=== PATIENT | female | born 1985 | race African-American/Black ===

== ENCOUNTER 2023-02-26 02:53 | Inpatient (IN) ==
[2023-02-26] MEDS ORDERED: LACTATED RINGER'S 1,000 ML IV PRN (03:45)
[2023-02-26] MEDS ORDERED: LIDOCAINE 1% LOCAL 20 ML VIAL INFIL PRN (03:45)
[2023-02-26] MEDS ORDERED: OXYTOCIN 30 UNITS/500 ML BAG IV PRN ×2 (03:45→05:16)
[2023-02-26 04:15] LABS: Hematocrit (blood only) 38.1 % (37.0-47.0); Hemoglobin 12.6 g/dl (12.0-16.0); Mean Corpuscular Hemoglobin 28.3 pg (25.0-34.0); Mean Corpuscular Hgb Conc 33.1 g/dL (32.0-36.0); Mean Corpuscular Volume 85.6 fL (80.0-100.0); Mean Platelet Volume 10.1 fL (9.4-12.4); Platelet Count 160 K/uL (130-400); RDW Coefficient of Variation 13.3 % (11.5-14.5); RDW Standard Deviation 42.1 fL (36.4-46.3); Red Blood Count 4.45 M/uL (4.20-5.40); White Blood Count 7.98 K/ul (4.8-10.8)
--- NOTE | 2023-02-26 04:15 | History & Physical Report ---
Date of Service February 26, 2023 Assessment & Plan Admission and Anticipated Discharge Date Admission Date: February 26, 2023 History of Present Illness Chief Complaint: onset of labor Primary Care Provider: NO PCP 37 F P1001 at38.5 weeks admitted in active labor. GBS is negative. Allergies Allergy/AdvReac Type Severity Reaction Status Date / Time No Known Allergies Allergy Unverified 02/26/23 03:11 Home Medications Medication Instructions Recorded Confirmed Type PO DAILY 02/26/23 History iron PO 02/26/23 History Patient History Medical History No known health problems Surgical History No history of previous surgery Family History Other No known health problems Social History Smoking Status: Never smoker Hx Alcohol Use: No Hx Substance Use: No Preferred Language: Estonian Communication Ability: Effective Pre K Lead Teacher Required: No Beliefs That Will Affect Care: None marital status: Current Living Situation: Spouse Current Living Situation Comment: spouse, daughter - 3 yr Other Information That Helps Us Care for You: No Feels Safe at Home: Yes Safety Concerns: Feels Safe At This Time Assistive Devices: None OB History x1 RAILROAD WORKER History neg Review of Systems All systems reviewed & are unremarkable except as noted in HPI & below Physical Exam Constitutional: WD/WN, vitals as above Eyes: PERRL, conjunctivae normal, anicteric sclerae Respiratory: normal respiratory effort, lungs clear to auscultation Cardiovascular: RRR, no murmur, no edema Gastrointestinal (Abdomen): normal bowel sounds, soft, nontender, no hepatosplenomegaly Musculoskeletal: Extremities: extremities normal to inspection Skin: no rashes, warm and dry Neurologic: patellar DTR's 2+ bilat, sensation intact Psychiatric: A+Ox3, euthymic affect Genitourinary: Manual OB Exam: + cervical dilation 8 cm, + cervical effacement 100% and + station -2 OB Exam Monitor Tracing: + external FHT monitor used, + external uterine monitor used, + category I and + normal FHT variability Results & Data Vital Signs (Past 12 Hours) Vital Signs Temp Pulse Resp BP 11/15/23 03:29 88 02/26/23 03:29 120/76 02/26/23 03:16 36.9 C 20 02/26/23 03:02 103 H 135/92 Code Status & VTE Plan VTE Prophylaxis Plan VTE Prophylaxis will be ordered: No Monitoring External Monitor Cat 1
[2023-02-26] MEDS ORDERED: ePHEDrine sulfate 50 MG/ML AMP ONE (04:24)
[2023-02-26] MEDS ORDERED: fentaNYL citrate PF 100 MCG/2 ML VIAL ONE (04:24)
[2023-02-26] MEDS ORDERED: BUPIVACAINE 0.25% PF 30 ML VIAL ONE (04:25)
[2023-02-26] MEDS ORDERED: LIDOCAINE 2%/EPINEPHRINE 1:200,000 20 ML PF ONE (04:25)
[2023-02-26] MEDS ORDERED: SODIUM CHLORIDE 0.9% PF INJ 10 ML VIAL ONE (04:25)
[2023-02-26] MEDS ORDERED: fentANYL 2 MCG/ML BUPIVacaine 0.125%-NSS 100ML BAG ONE (04:25)
--- NOTE | 2023-02-26 05:06 | Delivery Summary ---
Vaginal Delivery Summary Date of Service February 26, 2023 Vaginal Delivery Summary live female BETHANY over intact perineum with delayed cord clamping and Apgars 8/9 weight pending. Cord blood obtained followed by spontaneous delivery of intact placenta. No tears. EBL 100 ml. Final spomge and instrument count are correct. Mom and baby stable.
[2023-02-26] MEDS ORDERED: bisacodyL 10 MG SUPP PR PRN (05:16)
[2023-02-26] MEDS ORDERED: IBUPROFEN 600 MG TAB PO PRN (05:16)
[2023-02-26] MEDS ORDERED: HYDROCORTISONE ACETATE 25 MG SUPP PR PRN (05:16)
[2023-02-26] MEDS ORDERED: BENZOCAINE 20% SPRY 85 APPLN/85 GM CAN EXT PRN (05:16)
[2023-02-26] MEDS ORDERED: DIPHTHERIA/TETANUS/PERTUSSIS Vaccine (Tdap, Age 7+yrs) 0.5mL SYR/VL IM ONE (05:16)
[2023-02-26] MEDS: ACETAMINOPHEN 325 MG TAB PO PRN ×2 (05:41→19:57)
[2023-02-26] MEDS: PRENATAL VITAMIN 1 TAB PO SCH (07:58)
[2023-02-26] MEDS: DOCUSATE SODIUM 100 MG CAP PO SCH ×2 (07:58→19:56)
[2023-02-26] MEDS: FERROUS SULFATE 325 MG TAB PO SCH (07:58)
[2023-02-27 00:47] VITALS: RESP 18
--- NOTE | 2023-02-27 01:49 | Obstetrical Progress Note ---
Date of Service February 27, 2023 Assessment & Plan Admission and Anticipated Discharge Date Admission Date: February 26, 2023 Subjective Patient is seen and examined. She feels well, no complaints. Ambulating without dizziness Voiding without difficulty Tolerating regular diet with out N&V Bleeding is minimal No fever/ chills/ CP/ SOB/ N&V/ Leg pain Breast feeding without problems Vital Signs Temp Pulse Resp BP Pulse Ox O2 Del Method 02/27/23 00:27 36.6 C 86 18 104/65 97 Room Air 02/26/23 19:50 36.9 C 100 H 18 111/70 99 Room Air 02/26/23 16:11 36.7 C 17 113/75 99 Room Air Lab Results 02/26/23 Range/Units 03:55 WBC 7.98 (4.8-10.8) K/ul RBC 4.45 (4.20-5.40) M/uL Hgb 12.6 (12.0-16.0) g/dl Hct 38.1 (37.0-47.0) % MCV 85.6 (80.0-100.0) fL MCH 28.3 (25.0-34.0) pg MCHC 33.1 (32.0-36.0) g/dL RDW Std Deviation 42.1 (36.4-46.3) fL RDW Coeff of Brian 13.3 (11.5-14.5) % Plt Count 160 (130-400) K/uL MPV 10.1 (9.4-12.4) fL PE: General: Alert, orientedx3, NAD Abd: soft, NT, fundus firm, below Umbilicus Perineum intact, Lochia rubra minimal Ext; NT, no edema AP: 37 yo s/p , ppd# 1 VSS Afebrile doing well Continue routine care Desires d/c this morning, after 24 hours Discussed when to call All questions were answered Results & Data Vital Signs (Past 12 Hours) Vital Signs Temp Pulse Resp BP Pulse Ox O2 Del Method 02/27/23 00:27 36.6 C 86 18 104/65 97 Room Air 02/26/23 19:50 36.9 C 100 H 18 111/70 99 Room Air 02/26/23 16:11 36.7 C 17 113/75 99 Room Air
[2023-02-27 06:46] LABS: Hematocrit (blood only) 37.3 % (37.0-47.0); Hemoglobin 12.2 g/dl (12.0-16.0); Mean Corpuscular Hemoglobin 28.2 pg (25.0-34.0); Mean Corpuscular Hgb Conc 32.7 g/dL (32.0-36.0); Mean Corpuscular Volume 86.3 fL (80.0-100.0); Platelet Count 146 K/uL (130-400); RDW Coefficient of Variation 13.5 % (11.5-14.5); RDW Standard Deviation 42.5 fL (36.4-46.3); Red Blood Count 4.32 M/uL (4.20-5.40); White Blood Count 7.87 K/ul (4.8-10.8)
[2023-02-27] MEDS: PRENATAL VITAMIN 1 TAB PO SCH (07:59)
[2023-02-27] MEDS: DOCUSATE SODIUM 100 MG CAP PO SCH (07:59)
[2023-02-27] MEDS: FERROUS SULFATE 325 MG TAB PO SCH (08:00)
[2023-02-27] MEDS: ACETAMINOPHEN 325 MG TAB PO PRN (08:00)
[2023-02-27 09:02] VITALS: BP 119/68; PULSE 91; TEMP 98.8; O2SAT 99
[2023-02-27] MEDS ORDERED: bisacodyL 5 MG TABEC PO SCH (20:00)
--- OUTSIDE RECORDS SUMMARY | 2023-02-28 00:31 | External Medical Summary | Summary of Care ---
Author Name Unknown Organization [facility] Address [address] [facility] [place] [address] Phone [phone] Care Team Providers Care Blow Off Worker Name Role Phone Unavailable Primary Care Provider Unavailabl e Reason for Visit * Reason Comments Return Visit Encounter Details Date Type Department Care Team (Late st Contact Info) Description 02/11/2023 2:30 PM EDT Office Visit Gynecology/Obstetric s [facility] [address] [place] [address] Araceli Arriola CRNP [address] [place] [address] Multigravida of advanced maternal age in third trimester*; Normal in third trimester; Antepartum anemia complicating Allergies No known active allergiesdocumented as of this encounter (statuses as of 02/11/2023) Medications Medication Sig Dispensed Refills Start Date End Date Status Adult Gummy/DHA/FA 0.4-25 MG Oral Tablet Chewable Take by mouth. 0 Active Iron-Vitamin C 65-125 MG Oral Tablet (Vitron C)Indications:Antepart um anemia complicating Take 1 Tablet by mouth daily. 90 Tablet 2 07/31/2022 Active documented as of this encounter (statuses as of 02/11/2023) Active Problems Problem Noted Date Diagnosed Date Cervical high risk human pap illomavirus (HPV) DNA test positive 08/13/2022 Overview: Repeat pap 2023 Antepartum anemia complicating 023 Overview: Hgb 11.7 at NOB; rx Vitron C Normal 07/30/2022 AMA (advanced maternal age) multigravida 35+ Estimated Date of Delivery Comme nts Yes 03/07/2023 Based on last me nstrual period of 05/31/2022 (Exact Date) documented as of this encounter (statuses as of 02/11/2023) Immunizations Name Administration Dates Next Due SEASONAL INFLUENZA, PF, 6 M & Above, IM , (FLULAVAL or FLUZONE) 01/28/2023 TDAP (age 10 and older)(Boostrix) 01/09/2023 documented as of this encounter Social History Tobacco Use Types Packs/Day Years Used Date Smoking Tobacco: Never Smokeless Tobacco: Never Alcohol Use Standard Drinks/Week Comments Not Currently 0 (1 standard drink = 0.6 oz pur e alcohol) PHQ-2 Answer Date Recorded PHQ Adult Total Score 0 01/23/2023 Hunger Vital Sign Answer Date Recorded Within the past 12 months, y ou worried that your food would run out before you got the money to buy more. Never true 07/25/19 23 Within the past 12 months, t he food you bought just didn't last and you didn't have money to get more. Never true 07/24/2022 [place] Depression Scale Answer Date Recorded [place] Depression Scale Total 0 01/28/2023 The thought of harming myself has occurred to me . Never 01/28/2023 Estimated Date of Delivery Comme nts Yes 03/07/2023 Based on last me nstrual period of 05/31/2022 (Exact Date) Sex and Gender Information Value Date Recorded Sex Assigned at Female 07/24/2022 8:29 PM EDT Gender Identity Female 07/24/2022 8:29 PM EDT Sexual Orientation Straight 07/24/2022 8: 29 PM EDT Job Start Date Occupation Industry Not on file Not on file Not on file documented as of this encounter Last Filed Vital Signs Vital Sign Reading Time Taken Comments Blood Pressure 104/60 02/11/2023 1:12 PM EDT Pulse - - Temperature - - Respiratory Rate - - Oxygen Saturation - - Inhaled Oxygen Concentration - - Weight 89.8 kg (198 lb) 02/11/2023 1:12 PM EDT Height 157.5 cm (5' 2") 02/11/2023 1:12 PM EDT Body Mass Index 36.21 02/11/2023 1:12 PM EDT documented in this encounter Progress Notes * Araceli Arriola CRNP - 02/11/2023 1:21 PM EDT 36w4d No concerns. Growth u/s today, formal report pending. +cardiac activity on u/s. Baby is active, no bleeding or LOF. GBS today. Stitcher Set Up Operator Automatic Documentation Provider requested eap consultant. Name of eap consultant: TANESHA Ricks documented in this encounter Nursing Notes * Blanca Vargas LPN - 02/11/2023 12:59 PM EDT 36w4d Pt needs gbs 11.7 david 2791gm 23% HC below 2% the standard mean documented in this encounter Plan of Treatment Upcoming Encounters Date Type Department Care Team (Late st Contact Info) Description 02/20/2023 9:00 AM EST Office Visit Gynecology/Obstetrics [facility] [address] [place] [address] Kayley Bear CRNP [address] [place] [address] 02/27/2023 9:00 AM EST Office Visit Gynecology/Obstetrics [facility] [address] [place] [address] Kayley Bear CRNP [address] [place] [address] 03/04/2023 1:45 PM EST Office Visit Gynecology/Obstetrics [facility] [address] [place] [address] Backer, TANESHA Cha [address] [place] [address] Pending Results Name Type Priority Associated Diagnoses Date /Time GROUP B STREP CULTURE/PCR Lab Routine Multigravida of advanced maternal age in third trimester 02/11/2023 1:39 PM EDT Scheduled Orders Name Type Priority Associated Diagnoses Orde r Schedule GROUP B STREP CULTURE/PCR Lab Routine Multigravida of advanced maternal age in third trimester Expected: 02/11/2023, Expires: 02/12/2024 Health Maintenance Due Date Last Done Comments Diabetes Screening 1985 Hepatitis B (1 of 3 - 3-dose series) 1985 COVID-19 Vaccine (#1) 1985 Depression Screening 01/24/2024 01/23/2023 Pap Smear 07/30/2025 07/30/2022 Cervical Cancer Screening 07/31/2027 HPV/Co-Test 07/31/2027 07/30/2022 DTaP,Tdap,and Td Vaccines (2 - Td or Tdap) 01/09/2033 01/09/2023 Influenza Vaccine (FLU shot) Completed 01/28/2023 GARDASIL-HPV IMMUNIZATION SERIES Aged Out No longer eligible based on patient's age to complete this topic MENINGOCOCCAL (MENACTRA/MENVEO) Aged Out No longer eligible based on patient's age to complete this topic Pneumococcal Vaccine: Pediat rics (0 to 5 Years) and At-Risk Patients (6 to 64 Years) Aged Out No longer eligi ble based on patient's age to complete this topic documented as of this encounter Medical Devices Not on filedocumented as of this encounter Visit Diagnoses Diagnosis Multigravida of advanced maternal age in third trimester- Primary Normal in third trimester Antepartum anemia complicating Anemia, antepartum documented in this encounter
--- OUTSIDE RECORDS SUMMARY | 2023-02-28 00:31 | External Medical Summary | Summary of Care ---
Author Name Unknown Organization [facility] Address [address] [facility] [place] [address] Phone [phone] Care Team Providers Care Correctional Supervising Cook Name Role Phone Unavailable Primary Care Provider Unavailabl e Reason for Visit * Reason Comments Return Visit Encounter Details Date Type Department Care Team (Late st Contact Info) Description 02/20/2023 9:00 AM EST Office Visit Gynecology/Obstetric s [facility] [address] [place] [address] BackKayley cunha CRNP [address] [place] [address] Supervision of high risk in third trimester*; Multigravida of advanced maternal age in third trimester Allergies No known active allergiesdocumented as of this encounter (statuses as of 02/20/2023) Medications Medication Sig Dispensed Refills Start Date End Date Status Adult Gummy/DHA/FA 0.4-25 MG Oral Tablet Chewable Take by mouth. 0 Active Iron-Vitamin C 65-125 MG Oral Tablet (Vitron C)Indications:Antepart um anemia complicating Take 1 Tablet by mouth daily. 90 Tablet 2 07/31/2022 Active documented as of this encounter (statuses as of 02/20/2023) Active Problems Problem Noted Date Diagnosed Date Cervical high risk human pap illomavirus (HPV) DNA test positive 08/13/2022 Overview: Repeat pap 2023 Supervision of high risk in third trim karson 07/30/2022 Last Assessment & Plan: growth and fluid appropriate for gestational age. EFW 3379g (68%ile), FRED 13.8cm. All well visualized anatomy appears normal. No concerns regarding HC. AMA (advanced maternal age) multigravida 35+ Overview: Low FF on NIPT - pt declined redraw Last Assessment & Plan: cffDNA resulted as low FF, declined re-draw Estimated Date of Delivery Comme nts Yes 03/07/2023 Based on last me nstrual period of 05/31/2022 (Exact Date) documented as of this encounter (statuses as of 02/20/2023) Resolved Problems Problem Noted Date Diagnosed Date Resolved Date Abnormal US 02/12/20232022 Overview: HC <1% at 36w5d - MFM referral sent documented as of this encounter (statuses as of 02/20/2023) Immunizations Name Administration Dates Next Due SEASONAL [...] money to get more. Never true 07/24/2022 [place] Depression Scale Answer Date Recorded [place] Depression Scale Total 0 01/28/2023 The thought [...] Sign Reading Time Taken Comments Blood Pressure 100/60 02/20/2023 9:06 AM EST Pulse - - Temperature - - Respiratory Rate - - Oxygen Saturation - - Inhaled Oxygen Concentration - - Weight 89.4 kg (197 lb) 02/20/2023 9:06 AM EST Height - - Body Mass Index 36.03 02/11/2023 1:12 PM EDT documented in this encounter Progress Notes * Kayley Bear CRNP - 02/20/2023 9:07 AM EST 37w6d Saw MFM for suspected low HC - normal on their imaging, appropriate growth. Good movement, no regular ctx/bleeding/leaking. Sharp pain across low mid abdomen, around umbilicus: occurred last night and the night before, lasted 30 mins - 2 hrs. Self resolved, did not tryany comfort measures. No nausea, vomiting, fevers. Normal BMs. Normal abdominal exam - recommend Tylenol, position changes, warm bath. Call office if worsening or accompanied by N/V, fever. Having some irregular ctx, mostly at night. Baby is moving well. No leaking/bleeding. 1 week return TANESHA Ho * Munira Olvera LPN - 02/20/2023 9:06 AM EST 37w6d Denies vaginal bleeding/rom + movement documented in this encounter Plan of Treatment Upcoming Encounters Date Type Department Care Team (Late st Contact Info) Description 02/27/2023 9:00 AM EST Office Visit Gynecology/Obstetrics [facility] [address] [place] [address] Kayley Bear CRNP [address] [place] [address] 03/04/2023 1:45 PM EST Office Visit Gynecology/Obstetrics [facility] [address] [place] [address] Kayley Bear CRNP [address] [place] [address] Health Maintenance Due Date Last Done Comments [...] as of this encounter Visit Diagnoses Diagnosis Supervision of high risk in third trimester- Primary Unspecified high-risk Multigravida of advanced maternal age in third trimester documented in this encounter
--- OUTSIDE RECORDS SUMMARY | 2023-02-28 00:31 | External Medical Summary | Summary of Care ---
Author Name Unknown Organization [facility] Address [address] [place] [address] Phone [phone] Care Team Providers Care Manager Channel Name Role Phone Unavailable Primary Care Provider Unavailabl e Reason for Visit * Evaluate & Treat - Unlimited Visits (Within 3 days (urgent)) - Authorized Specialty Diagnoses / Procedures Referred By Contac t Referred To Contact Obstetrics/Gynecology / Maternal Medicine Diagnoses Abnormal ultrasonic finding on screening of mother Kayley Bear CRNP [address] [place] [address] Referral ID Status Reason Start Date Expiration Date Visits Requested Visits Authorized [id number] Authorized Specialty Services Required 02/12/2023 02/13/2024 [id number] Encounter Details Date Type Department Care Team (Late st Contact Info) Description 02/19/2023 8:30 AM EST Office Visit Corn Grower Obstetrics [facility] [place] [address] [place] [address] Nghia Pearl MD [address] [place] [address] Multigravida of advanced maternal age in third trimester*; Supervision of high risk in third trimester Allergies No known active allergiesdocumented as of this encounter (statuses as of 02/19/2023) Medications Medication Sig Dispensed Refills Start Date End Date Status Adult Gummy/DHA/FA 0.4-25 MG Oral Tablet Chewable Take by mouth. 0 Active Iron-Vitamin C 65-125 MG Oral Tablet (Vitron C)Indications:Antepart um anemia complicating Take 1 Tablet by mouth daily. 90 Tablet 2 07/31/2022 Active documented as of this encounter (statuses as of 02/19/2023) Active Problems Problem Noted Date Diagnosed Date Abnormal US 02/12/2023 Overview: HC <1% at 36w5d - [facility] referral sent Cervical high risk human pap illomavirus (HPV) DNA test positive 08/13/2022 Overview: Repeat pap 2023 Supervision of high risk in third [facility] karson 07/30/2022 Last Assessment & Plan: growth and fluid appropriate for gestational age. EFW 3379g (68%ile), FRED 13.8cm. All well visualized anatomy appears normal. No concerns regarding HC. AMA (advanced maternal age) multigravida 35+ Last Assessment & Plan: cffDNA resulted as low FF, declined re-draw Estimated Date of Delivery Comme nts Yes 03/07/2023 Based on last me nstrual period of 05/31/2022 (Exact Date) documented as of this encounter (statuses as of 02/19/2023) Immunizations Name Administration Dates Next Due SEASONAL [...] money to get more. Never true 07/24/2022 [place] Depression Scale Answer Date Recorded [place] Depression Scale Total 0 01/28/2023 The thought [...] on file documented as of this encounter Progress Notes * Jeane Carrillo, - 02/19/2023 9:12 AM EST MATERNAL MEDICINE VISIT Salma Rankin is at 37w5d who presents to [facility] for an ultrasound and follow-up of her high risk . REVIEW OF SYSTEMS: reports movement: yes PHYSICAL EXAM: Constitutional: pleasant, well-developed, well nourished General: pleasant, alert and oriented Neuro: mood and affect normal, alert and oriented, no acute distress She is being seen today by Maternal- Medicine for the following reasons: Problem List Items Addressed This Visit Other Supervision of high risk in third trimester growth and fluid appropriate for gestational age. EFW 3379g (68%ile), FRED 13.8cm. All well visualized anatomy appears normal. No concerns regarding HC. AMA (advanced maternal age) multigravida 35+ - Primary cffDNA resulted as low FF, declined re-draw We reviewed today's ultrasound findings. (For full report, please refer to ultrasound report provided separately). Ms. Rankin's questions were answered to her satisfaction. RECOMMENDATIONS: No further follow up with [facility] indicated at this time. Thank you for allowing us to participate in the care of this patient. Please call with any questions. Jeane Carrillo DO 02/19/2023 9:12 AM I have discussed the patient's management with the medical trainee and agree with the note. Please refer to the documented findings and plan of care. This patient's visit today consisted of an evaluation and a diagnostic. I was present and confirmed the findings of the history and exam. I have reviewed the interpretation of the diagnostic study. I reviewed the ultrasound with the patient. The anatomy that was visualized appears unremarkable and the head circumference is consistent with the 7th percentile for the gestational age. At this point, there is no clinical indication for return. Nghia Pearl MD 02/19/2023 9:41 AM Nghia Pearl MD documented in this encounter Miscellaneous Notes * Assessment & Plan Note - Jeane Carrillo DO - 02/19/2023 9:39 AM ESTAssociated Problem(s): Supervision of high risk in third trimester growth and fluid appropriate for gestational age. EFW 3379g (68%ile), FRED 13.8cm. All well visualized anatomy appears normal. No concerns regarding HC. * Assessment & Plan Note - Jeane Carrillo DO - 02/19/2023 9:11 AM ESTAssociated Problem(s): AMA (advanced maternal age) multigravida 35+ cffDNA resulted as low FF, declined re-draw documented in this encounter Plan of Treatment Upcoming Encounters Date Type Department Care Team (Late st Contact Info) Description 02/20/2023 9:00 AM EST Office Visit Gynecology/Obstetrics [facility] [address] [place] [address] Kayley Bear CRNP [address] [place] [address] 02/27/2023 9:00 AM EST Office Visit Gynecology/Obstetrics [facility] [address] [place] [address] Kayley Bear CRNP [address] [place] [address] 03/04/2023 1:45 PM EST Office Visit Gynecology/Obstetrics [facility]ocesar [facility] [address] [place] [address] Kayley Bear CRNP [address] [place] [address] Scheduled Referrals Name Type Priority Associated Diagnoses Orde r Schedule MATERNAL MEDICINE REFERRAL OP Referral Within 3 days (urgent) Abnormal ultrasonic finding on screening of mother Ordered: 02/12/2023 Health Maintenance Due Date Last Done Comments [...] advanced maternal age in third trimester- Primary Supervision of high risk in third trimester Unspecified high-risk documented in this encounter
--- OUTSIDE RECORDS SUMMARY | 2023-02-28 00:31 | External Medical Summary | Summary of Care ---
Author Name Unknown Organization [facility] Address [address] [facility] [place] [address] Phone [phone] Care Team Providers Care Chief Relay Tester Name Role Phone Unavailable Primary Care Provider Unavailabl e Reason for Visit * Reason Comments Return Visit Encounter Details Date Type Department Care Team (Late st Contact Info) Description 02/11/2023 2:30 PM EDT Office Visit Gynecology/Obstetric s [facility] [address] [place] [address] Araceli Arriola CRNP [address] [place] [address] Multigravida of advanced maternal age in third [...] money to get more. Never true 07/24/2022 [place] Depression Scale Answer Date Recorded [place] Depression Scale Total 0 01/28/2023 The thought [...] active, no bleeding or LOF. GBS today. Field Care Coordinator Documentation Provider requested sales and marketing manager. Name of sales and marketing manager: TANESHA Ricks documented in this encounter Nursing Notes * Blanca Vargas LPN - 02/11/2023 12:59 PM EDT 36w4d Pt needs gbs 11.7 david 2791gm 23% HC below 2% the standard mean documented in this encounter Plan of Treatment Upcoming Encounters Date Type Department Care Team (Late st Contact Info) Description 02/20/2023 9:00 AM EST Office Visit Gynecology/Obstetrics [facility] [address] [place] [address] Kayley Bear CRNP [address] [place] [address] 02/27/2023 9:00 AM EST Office Visit Gynecology/Obstetrics [facility]oc[facility] [address] [place] [address] Kayley Bear CRNP [address] [place] [address] 03/04/2023 1:45 PM EST Office Visit Gynecology/Obstetrics [facility] [address] [place] [address] Backer, TANESHA Cha [address] [place] [address] Pending Results Name Type Priority Associated Diagnoses [...]
--- OUTSIDE RECORDS SUMMARY | 2023-02-28 00:31 | External Medical Summary | Summary of Care ---
Author Name Unknown Organization [facility] Address [address] [facility] [address] Phone [phone] Care Team Providers Care Network Systems Operator Name Role Phone Unavailable Primary Care Provider Unavailabl e Reason for Referral * Evaluate & Treat - Unlimited Visits (Within 3 days (urgent)) - Pending Review Specialty Diagnoses / Procedures Referred By Caryn t Referred To Contact Obstetrics/Gynecology / Maternal Medicine Diagnoses Abnormal ultrasonic finding on screening of mother Kayley Bear CRNP [address] [place] [address] Referral ID Status Reason Start Date Expiration Date Visits Requested Visits Authorized [id number] Pending Review Specialty Services Required 02/12/[phone] Question Answer Referral Priority Within 3 days (urgent) Has the patient had a viability scan? Yes Date performed 07/30/2022 Location performed Radiology Reason for referral Abnormal ultrasound findings Please provide additional details HC <1 % Where should this appointment be scheduled? Ruby Comments /Para: LMP: Patient's last menstrual period was 05/31/2022 (exact date). Patient is . CHELSY: 03/07/2023, by Last Menstrual Period Pre-Gravid BMI: 25.78 Reason for Visit * Reason Onset Date Comments Test Results 02/12/2023 Encounter Details Date Type Department Care Team ([facility] Contact Info) Description 02/12/2023 Telephone Gynecology/Obstetrics [facility] [address] [place] [address] Backer, TANESHA Cha [address] [place] [address] Test Results Allergies No known active allergiesdocumented as of this encounter (statuses as of 02/13/2023) Medications Medication Sig Dispensed Refills Start Date End Date Status Adult Gummy/DHA/FA 0.4-25 MG Oral Tablet Chewable Take by mouth. 0 Active Iron-Vitamin C 65-125 MG Oral Tablet (Vitron C)Indications:Antepart um anemia complicating Take 1 Tablet by mouth daily. 90 Tablet 2 07/31/2022 Active documented as of this encounter (statuses as of 02/13/2023) Active Problems Problem Noted Date Diagnosed Date Abnormal US 02/12/2023 Overview: HC <1% at 36w5d - [facility] referral sent Cervical high risk human [...] as of this encounter (statuses as of 02/13/2023) Immunizations Name Administration Dates Next Due SEASONAL [...] money to get more. Never true 07/24/2022 Hollis Depression Scale Answer Date Recorded Hollis Depression Scale Total 0 01/28/2023 The thought [...] on file documented as of this encounter Miscellaneous Notes * Telephone Encounter - Vanessa Ly LPN - 02/13/2023 9:07 AM EDT Patient advised of message and agreeable to MFM referral. Pt aware they will be contacting her to schedule. * Telephone Encounter - Kayley Bear CRNP - 02/13/2023 8:31 AM EDT MyG message sent to pt requesting that she call nurse triage line. TANESHA Ho * Telephone Encounter - Kayley Bear CRNP - 02/12/2023 10:17 AM EDT Attempted to call pt but no one available. Can you please re attempt? Recent growth scan shows head circumference <1 % - may be because baby's head is low in the pelvis, so it is hard to get accurate measurements, but recommend u/s with MFM for more detailed scan torule out other concerns. I am placing a referral to them. TANESHA Ho documented in this encounter Plan of Treatment Upcoming Encounters Date Type Department Care Team (Late st Contact Info) Description 02/20/2023 9:00 AM EST Office Visit Gynecology/Obstetrics Bautista'christine Jacksons [address] [place] [address] Kayley Bear CRNP [address] [place] [address] 02/27/2023 9:00 AM EST Office Visit Gynecology/Obstetrics Juliocesar Jacksons [address] [place] [address] Kayley Bear CRNP [address] [place] [address] 03/04/2023 1:45 PM EST Office Visit Gynecology/Obstetrics Juliocesar Bahena [address] [place] [address] Kayley Bear CRNP [address] [place] [address] Scheduled Orders Name Type Priority Associated Diagnoses Orde r Schedule MFM US MATERNAL 1ST FETUS Medical Imaging Routine Abnormal ultrasonic finding on screening of mother Expected: 02/12/2023, Expires: 03/14/2024 Scheduled Referrals Name Type Priority Associated Diagnoses [...] as of this encounter Visit Diagnoses Diagnosis Abnormal ultrasonic finding on screening of mother- Primary Abnormal findings on screening documented in this encounter
--- OUTSIDE RECORDS SUMMARY | 2023-02-28 00:32 | External Medical Summary | Summary of Care ---
Author Name Unknown Organization [facility] Address [address] [place] [address] Phone [phone] Care Team Providers Care Metrology Manager Name Role Phone Unavailable Primary Care Provider Unavailabl e Reason for Visit * Reason Comments Return Visit Encounter Details Date Type Department Care Team Description 01/09/2023 Office Visit Gynecology/Obstetric [facility] [address] [facility] [place] [address] Sheila Genao MD [address] [facility] [place], [place] [id number] 31 weeks gestation of *; Multigravida of advanced maternal age in first trimester; Antepartum anemia complicating ; Cervical high risk human papillomavirus (HPV) DNA test positive; Normal in third trimester Allergies No known active allergiesdocumented as of this encounter (statuses as of 01/10/2023) Medications Medication Sig Dispensed Refills Start Date End Date Status Adult Gummy/DHA/FA 0.4-25 MG Oral Tablet Chewable Take by mouth. 0 Active Promethazine HCl 25 MG Rectal Suppository (Phenergan)Indicatio ns:Nausea and vomiting during Administer 1 Suppository into the rectum every 6 hours as needed for Nausea. 30 Each 1 07/30/2022 Active Additional Information Patient not taking.Reported on 08/30/2022 Iron-Vitamin C 65-125 MG Oral Tablet (Vitron C)Indications:Antepa rtum anemia complicating Take 1 Tablet by mouth daily. 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 papillomavirus (HPV) DNA test positive 08/13/2022 Overview: Repeat pap 2023 Antepartum anemia complicating 07/31/2022 Overview: Hgb 11.7 at NOB; rx Vitron C Normal 07/30/2022 AMA (advanced maternal age) multigravida 35+ 07/30/2022 Estimated Date of Delivery Comme nts Yes 03/07/2023 Based on last me nstrual period of 05/31/2022 (Exact Date) documented as of this encounter (statuses as of 01/10/2023) Immunizations Name Administration Dates Next Due TDAP (age 10 and older)(Boostrix) 01/09/2023 documented as of this encounter Social History Tobacco Use Types Packs/Day Years Used Date Smoking Tobacco: Never Smokeless Tobacco: Never Alcohol Use Standard Drinks/Week Comments Not Currently 0 (1 standard drink = 0.6 oz pur e alcohol) Food Insecurity Answer Date Recorded Within the past 12 months, y ou worried that your food would run out before you got money to buy more. Never true 07/25/2022 Within the past 12 months, t he food you bought just didn't last and you didn't have money to get more. Never true 07/25/2022 Estimated Date of Delivery Comme nts Yes 03/07/2023 Based on last me nstrual period of 05/31/2022 (Exact Date) Sex Assigned at Date Recorded Female 07/24/2022 8:29 PM E DT Job Start Date Occupation Industry Not on file Not on file Not on file documented as of this encounter Last Filed Vital Signs Vital Sign Reading Time Taken Comments Blood Pressure 102/70 01/09/2023 4:17 PM EDT Pulse - - Temperature - - Respiratory Rate - - Oxygen Saturation - - Inhaled Oxygen Concentration - - Weight 85.7 kg (189 lb) 01/09/2023 4:17 PM EDT Height 157.5 cm (5' 2") 01/09/2023 4:17 PM EDT Body Mass Index 34.57 01/09/2023 4:17 PM EDT documented in this encounter Progress Notes * Vanessa Gross LPN - 01/09/2023 4:17 PM EDT 31w6d Would like tdap, unsure about flu. Asking for recommendations on cold medicines- advised plain sudafed or mucinex, no combinations. * Sheila Genao MD - 01/09/2023 4:15 PM EDT Patient is 37 year old at 31 6/7 weeks who presents for HARVINDER visit Denies contractions, leaking of fluid, or vaginal bleeding. Noted good movement Denies headache, blurry vision, RUQ or epigastric pain. Problem list reviewed LMP 05/31/2022 (Exact Date) FH: 32 FHT: 155 Latest Reference Range & Units 12/19/22 12:27 12/23/22 08:36 12/23/22 09:39 12/23/22 10:40 12/23/22 11:41 100-g Gestational Glucose, 1 Hour 70 - 179 mg/dL 181 (H) 100-g Gestational Glucose, 2 Hour 70 - 154 mg/dL 135 100-g Gestational Glucose, 3 Hour 70 - 139 mg/dL 75 100-g Gestational Glucose, Fasting 70 - 94 mg/dL 81 50-g Gestational Glucose, 1 Hour 70 - 129 mg/dL 132 (H) (H): Data is abnormally high Plan: Labor and preeclampsia warnings reviewed TDAP today RTC 2 weeks V Chadwick LARES PhD documented in this encounter Nursing Notes * Vanessa Gross LPN - 01/09/2023 4:30 PM EDT Patient here for tdap injection. Patient doing well no complaints. Injection given IM as ordered. Patient tolerated well. Patient to follow up as directed. Patient instructed to call if any complications. Patient verbalized understanding of instructions given and her follow up appt for HARVINDER. Injection site: Left Deltoid Medication Source: Dispensed stock medication documented in this encounter Plan of Treatment Upcoming Encounters Date Type Specialty Care Team Description 01/23/2023 Office Visit Family Medicine Moe Lopez DO [address] [place] [address] Health Maintenance Due Date Last Done Comments Diabetes Screening 1985 Hepatitis B (1 of 3 - 3-dose series) 1985 COVID-19 Vaccine (#1) 1985 Depression Screening 1997 Influenza Vaccine (FLU shot) (#1) 2022 Pap Smear 07/30/2025 07/30/2022 Cervical Cancer Screening 07/31/2027 HPV/Co-Test 07/31/2027 07/30/2022 DTaP,Tdap,and Td Vaccines (2 - Td or Tdap) 01/09/2033 01/09/2023 GARDASIL-HPV IMMUNIZATION SERIES Aged Out No longer [...] as of this encounter Visit Diagnoses Diagnosis 31 weeks gestation of - Primary state, incidental Multigravida of advanced maternal age in first trimester Antepartum anemia complicating Anemia, antepartum Cervical high risk human papillomavirus (HPV) DNA test positive Normal in third trimester documented in this encounter
--- OUTSIDE RECORDS SUMMARY | 2023-02-28 00:32 | External Medical Summary ---
Author Name Unknown Address Unknown Organization [id number]:[facility] [place] [address] Laboratory Report Ordering Provider Test Date Status ALDO EDGAR 12/23/2022 10:40:20 Final Observation Date Value Abnormality Reference (Units ) Status Glucose, 2-hr post glucose challenge 12/23/2022 10:40:20 135 70-154 (mg/dL) Final Performing Location [facility] - [address] [place] [address]
--- OUTSIDE RECORDS SUMMARY | 2023-02-28 00:32 | External Medical Summary | Summary of Care ---
Author Name Unknown Organization [facility] Address [address] [facility] [address] Phone [phone] Care Team Providers Care State Director Name Role Phone Unavailable Primary Care Provider Unavailabl e Reason for Visit * Reason Comments Outpatient Testing Encounter Details Date Type Department Care Team Description 12/23/2022 Laboratory Laboratory, [facility] [address] [facility] [place] [phone] [facility] [address] [facility] [place] [address] Abnormal glucose tolerance in mother complicating Allergies No known active allergiesdocumented as of this encounter (statuses as of 12/23/2022) Medications Medication Sig Dispensed Refills Start Date [...] as of this encounter (statuses as of 12/23/2022) Active Problems Problem Noted Date Cervical high [...] as of this encounter (statuses as of 12/23/2022) Social History Tobacco Use Types Packs/Day Years [...] file Not on file Not on file Travel History Travel Start Travel End [place] 11/21/2022 11/30/2022 documented as of this encounter Plan of Treatment Upcoming Encounters Date Type Specialty Care Team Description 01/23/2023 Office Visit Family Medicine Moe Lopez DO [address] [place] [address] Pending Results Name Type Priority Associated Diagnoses Date /Time GESTATIONAL GLUCOSE TOLERANCE, 3 HOUR Lab Routine Abnormal glucose tolerance in mother complicating 12/23/2022 8:36 AM EDT 100-G GESTATIONAL GLUCOSE, 2 HOUR Lab Routine Abnormal glucose tolerance in mother complicating 12/23/2022 10:40 AM EDT 100-G GESTATIONAL GLUCOSE, 3 HOUR Lab Routine Abnormal glucose tolerance in mother complicating 12/23/2022 11:41 AM EDT Health Maintenance Due Date Last Done Comments Diabetes Screening 1985 Hepatitis B (1 of 3 - 3-dose series) 1985 COVID-19 Vaccine (#1) 1985 Depression Screening 1997 DTaP,Tdap,and Td Vaccines (1 - Tdap) 2004 Influenza Vaccine (FLU shot) (#1) 2022 Pap Smear 07/30/2025 07/30/2022 Cervical Cancer Screening 07/31/2027 HPV/Co-Test 07/31/2027 07/30/2022 Hepatitis C Screening Discontinued 07/30/2022 , 07/30/2022, 07/30/2022 GARDASIL-HPV IMMUNIZATION SERIES Aged Out No longer eligible based on patient's age to complete this topic MENINGOCOCCAL (MENACTRA/MENVEO) Aged Out No longer eligible based on patient's age to complete this topic Pneumococcal Vaccine: Pediatrics (0 to 5 Years) and At-Risk Patients (6 to 64 Years) Aged Out No longer eligible based on patient's age to complete this topic documented as of this encounter Medical Devices Not on filedocumented as of this encounter Procedures Procedure Name Priority Date/Time Associated Diagnosis Comments 100-G GESTATIONAL GLUCOSE, 1 HOUR Routine 12/23/2022 9:39 AM EDT Abnormal glucose tolerance in mother complicating 100-G GESTATIONAL GLUCOSE, FASTING Routine 12/23/2022 8:36 AM EDT Abnormal glucose tolerance in mother complicating documented in this encounter Results * (ABNORMAL) 100-G GESTATIONAL GLUCOSE, 1 HOUR (12/23/2022 9:39 AM EDT) 100-g Gestational Glucose, 1 Hour 181(H) 70 - 179 mg/dL 12/23/2022 10:27 AM EDT [facility] [place] [facility] Blood Venous blood specimen / Unknown Venipuncture / Unknown 12/23/2022 9:39 AM EDT 12/23/2022 9:39 AM EDT Latanya Jolly PA-C LAB BLOOD ORDERABLES [facility] [place] [address] * 100-G GESTATIONAL GLUCOSE, FASTING (12/23/2022 8:36 AM EDT) 100-g Gestational Glucose, Fasting 81 70 - 94 mg/dL 12/23/2022 9:45 AM EDT [facility] Blood Venous blood specimen / Unknown Venipuncture / Unknown 12/23/2022 8:36 AM EDT 12/23/2022 8:36 AM EDT Narrative [facility] - 12/23/2022 9:45 AM EDT Based on ACOG guideline, gestational diabetes mellitus is diagnosed when any of the following is met: Fasting is greater than or equal to 95 mg/dL 1 hour is greater than or equal to 180 mg/dL 2 hour is greater than or equal to 155 mg/dL 3 hour is greater than or equal to 140 mg/dL Latanya Jolly PA-C LAB BLOOD ORDERABLES [facility] [place] [address] documented in this encounter Visit Diagnoses Diagnosis Abnormal glucose tolerance in mother complicating Abnormal maternal glucose tolerance, complicating , childbirth, or the puerperium, unspecified as to episode of care documented in this encounter
--- OUTSIDE RECORDS SUMMARY | 2023-02-28 00:32 | External Medical Summary ---
Author Name Unknown Address Unknown Organization [id number]:[facility] [place] [facility] [address] [facility] [address] Laboratory Report Ordering Provider Test Date Status GEORGE CASTAÑEDA 02/11/2023 13:39:07 Final Observation Date Value Abnormality Reference (Units ) Status Streptococcus agalactiae DNA [Presence] in Specimen by PEREZ with probe detection 02/11/2023 13:39:07 Negative Negative Final No Group B Streptococcus det ected by culture-enhanced PCR (amplified probe).
The collection of vaginal/rectal swab specimen combinations (FDA approved specimen type) is optimal for the detection of Group B Streptococcus. Single source collection (vaginal only or rectal only) or alternate specimen sources may lead to false negative results. Performing Location [facility] [place] [facility] [address] [place] [address] [place] [address]
--- OUTSIDE RECORDS SUMMARY | 2023-02-28 00:32 | External Medical Summary | Summary of Care ---
Author Name Unknown Organization [facility] Address [address] [facility] [address] Phone [phone] Care Team Providers Care Sales Associate Key Holder Name Role Phone Unavailable Primary Care Provider Unavailabl e Reason for Visit * Reason Comments Outpatient Testing Encounter Details Date Type Department Care Team Description 01/28/2023 Laboratory Laboratory, [facility] [address] [facility] [place] [phone] [facility] [address] [facility] [place] [address] Antepartum anemia complicating Allergies No known active allergiesdocumented as of this encounter (statuses as of 01/28/2023) Medications Medication Sig Dispensed Refills Start Date End Date Status Adult Gummy/DHA/FA 0.4-25 MG Oral Tablet Chewable Take by mouth. 0 Active Iron-Vitamin C 65-125 MG Oral Tablet (Vitron C)Indications:Antepart um anemia complicating Take 1 Tablet by mouth daily. 90 Tablet 2 07/31/2022 Active documented as of this encounter (statuses as of 01/28/2023) Active Problems Problem Noted Date Cervical high [...] as of this encounter (statuses as of 01/28/2023) Immunizations Name Administration Dates Next Due SEASONAL [...] on file documented as of this encounter Plan of Treatment Upcoming Encounters Date Type Specialty Care Team Description 02/11/2023 Imaging Radiology 02/11/2023 Office Visit Gynecology Obstetrics Backer, TANESHA Cha [address] [place] [address] Health Maintenance Due Date Last Done Comments [...] Procedure Name Priority Date/Time Associated Diagnosis Comments CBC Routine 01/28/2023 12:11 PM EDT Antepartum anemia complicating documented in this encounter Results * CBC (01/28/2023 12:11 PM EDT) WBC 6.08 4.00 - 10.80 K/uL 01/28/2023 12:18 PM EDT [facility] [place] [facility] RBC 4.35 3.85 - 5.15 M/uL 01/28/2023 12:18 PM EDT [facility] [place] 57[facility]10 HGB 12.6 12.0 - 15.3 g/dL 01/28/2023 12:18 PM EDT [facility] [place] [facility]10 HCT 38.6 36.0 - 45.2 % 01/28/2023 12:18 PM EDT [facility] [place] [facility] MCV 88.7 81.5 - 97.5 fL 01/28/2023 12:18 PM EDT [facility] [place] [facility] MCH 29.0 27.0 - 34.0 pg 01/28/2023 12:18 PM EDT [facility] [place] [facility]10 MCHC 32.6 32.0 - 36.0 g/dL 01/28/2023 12:18 PM EDT [facility] [place] [facility] RDW 13.4 11.5 - 15.5 % 01/28/2023 12:18 PM EDT [facility] [place] [facility] PLT 151 140 - 400 K/uL 01/28/2023 12:18 PM EDT [facility] MPV 10.2 6.6 - 11.1 fL 01/28/2023 12:18 PM EDT [facility] [place] [facility]10 Blood Venous blood specimen / Unknown Venipuncture / Unknown 01/28/2023 12:11 PM EDT 01/28/2023 12:11 PM EDT Kayley Brittoner TANESHA LAB BLOOD O RDERABLES [facility] [address] [facility] [place] [address] documented in this encounter Visit Diagnoses Diagnosis Antepartum anemia complicating Anemia, antepartum documented in this encounter
--- OUTSIDE RECORDS SUMMARY | 2023-02-28 00:32 | External Medical Summary | Summary of Care ---
Author Name Unknown Organization [facility] Address [address] [facility] [address] Phone [phone] Care Team Providers Care Farm Crew Leader Name Role Phone Unavailable Primary Care Provider Unavailabl e Reason for Visit * Reason Onset Date Comments Return Visit Medication Administration 01/28/2023 Flu an d/or Pneumo Inj Encounter Details Date Type Department Care Team Description 01/28/2023 Office Visit Gynecology/Obstetrics [facility] [address] [place] [address] Kayley Bear CRNP [address] [place] [address] Normal in third trimester*; Multigravida of advanced maternal age in third trimester; Antepartum anemia complicating ; Need for prophylactic vaccination and inoculation against influenza; Uterine size date discrepancy Allergies No known active allergiesdocumented as of this encounter (statuses as of 01/28/2023) Medications Medication Sig Dispensed Refills Start Date End Date Status Adult Gummy/DHA/FA 0.4-25 MG Oral Tablet Chewable Take by mouth. 0 Activ e Iron-Vitamin C 65-125 MG Oral Tablet (Vitron C)Indications:Ant epartum anemia complicating Take 1 Tablet by mouth daily. 90 Tablet 2 07/31/2022 Active Promethazine HCl 25 MG Rectal Suppository (Phenergan)Indica tions:Nausea and vomiting during Administer 1 Suppository into the rectum every 6 hours as needed for Nausea. 30 Each 1 07/30/2022 3 Discontinued documented as of this encounter (statuses as [...] Sign Reading Time Taken Comments Blood Pressure 102/62 01/28/2023 11:37 AM EDT Pulse - - Temperature - - Respiratory Rate - - Oxygen Saturation - - Inhaled Oxygen Concentration - - Weight 87.7 kg (193 lb 6.4 oz) 01/28/2023 11:37 AM EDT Height - - Body Mass Index 35.37 01/09/2023 4:17 PM EDT documented in this encounter Progress Notes * TANESHA Shields - 01/28/2023 11:42 AM EDT 34w4d Doing well, good movement. No ctx/leaking/bleeding. Repeat CBC today. Given labor instructions. Discussed pain mgmt in labor. Desires flu shot. S>D, will get growth u/s. 2 week return TAENSHA Ho * Munira Olvera LPN - 01/28/2023 11:37 AM EDT 34w4d Denies vaginal bleeding/rom + movement Pain relief options during delivery? Labor instructions given documented in this encounter Nursing Notes * Munira Olvera LPN - 01/28/2023 12:03 PM EDT Patient here for flu injection. Patient doing well no complaints. Injection given IM as ordered. Patient tolerated well. Patient to follow up as directed. Patient instructed to call if any complications. Patient verbalized understanding of instructions given. Injection site: Left Deltoid Medication Source: Dispensed stock medication documented in this encounter Plan of Treatment Upcoming Encounters Date Type Specialty Care Team Description 02/11/2023 Imaging Radiology 02/11/2023 Office Visit Gynecology Obstetrics BackKayley cunha CRNP [address] [facility] [place] [address] Scheduled Orders Name Type Priority Associated Diagnoses Orde r Schedule US PREG FOLLOW-UP EACH FETUS Medical Imaging Routine Normal in third trimester Uterine size date discrepancy Expected: 01/28/2023 (Approximate), Expires: 02/29/2024 Health Maintenance Due Date Last Done Comments [...] Not on filedocumented as of this encounter Results * CBC (01/28/2023 12:11 [...] 15.5 % 01/28/2023 12:18 PM EDT [facility] [place] 57-10 PLT 151 140 - 400 K/uL 01/28/2023 12:18 PM EDT [facility] [place] 57[facility]10 MPV 10.2 6.6 - 11.1 fL 01/28/2023 12:18 PM EDT [facility] [place] 57[facility]10 Blood Venous blood specimen / Unknown Venipuncture / Unknown 01/28/2023 12:11 PM EDT 01/28/2023 12:11 PM EDT Kayley Brittoner TANESHA LAB BLOOD O RDERABLES [facility] [place] [address] [place] [address] documented in this encounter Visit Diagnoses Diagnosis Normal in third trimester- Primary Multigravida of advanced maternal age in third trimester Antepartum anemia complicating Anemia, antepartum Need for prophylactic vaccination and inoculation against influenza Uterine size date discrepancy Uterine size date discrepancy, antepartum condition or complication documented in this encounter
--- OUTSIDE RECORDS SUMMARY | 2023-02-28 00:32 | External Medical Summary | Summary of Care ---
Author Name Unknown Organization [facility] Address [address] [facility] [address] Phone [phone] Care Team Providers Care Gyn Physician Name Role Phone Unavailable Primary Care Provider Unavailabl e Encounter Details Date Type Department Care Team Description 12/20/2022 Telephone Gynecology/Obstetrics [facility] [address] [place] [address] Latanya Jolly PA-C [address] [place] [address] Allergies No known active allergiesdocumented as of this encounter (statuses as of 01/07/2023) Medications Medication Sig Dispensed Refills Start Date [...] as of this encounter (statuses as of 01/07/2023) Active Problems Problem Noted Date Cervical high [...] as of this encounter (statuses as of 01/07/2023) Social History Tobacco Use Types Packs/Day Years [...] encounter Miscellaneous Notes * Telephone Encounter - LUKE Herrmann - 12/20/2022 10:35 AM EDT Apt scheduled * Telephone Encounter - Lora Parker LPN - 12/20/2022 9:08 AM EDT Patient notified of abnormal glucola. The order has been placed in [employer] Patient. advised to be NPO after 10pm the night before the test.The patient must stay on the premises for the entire time of the test. Patient counseled to take something to eat for after testing. Please call patient to help her schedule 3 hour gtt * Telephone Encounter - Latanya Jolly PA-C - 12/20/2022 9:00 AM EDT Pt still slightly anemic. She should continue once daily oral iron. She just barely failed 1 hour glucose testing. Unfortunately this means we do have to do 3 hour testing to confirm not GDM. I placed order, please make aware and given instructions for fasting. She should bring snack to have afterwards. documented in this encounter Plan of Treatment Upcoming Encounters Date Type Specialty Care Team Description 01/09/2023 Office Visit Gynecology Obstetrics Sheila Genao MD [address] [place] [address] [place] [id number] 01/23/2023 Office Visit Family Medicine Moe Lopez DO [address] [place] [address] Health Maintenance Due Date Last Done Comments [...] of this encounter Visit Diagnoses Diagnosis Abnormal glucose tolerance in mother complicating - Primary Abnormal maternal glucose tolerance, complicating , childbirth, or the puerperium, unspecified as to episode of care documented in this encounter
--- OUTSIDE RECORDS SUMMARY | 2023-02-28 00:32 | External Medical Summary | Summary of Care ---
Author Name Unknown Organization [facility] Address [address] [facility] [place] [address] Phone [phone] Care Team Providers Care Advertising Operations Manager Name Role Phone Unavailable Primary Care Provider Unavailabl e Reason for Visit * Reason Comments Physical-Exam Pt here for CPE, ges tation 33 weeks. No concerns noted per pt. Encounter Details Date Type Department Care Team Description 01/23/2023 Office Visit Family Practice [facility] [address] [place] [address] Moe Lpoez, [address] [place] [address] Well adult exam*; Multigravida of advanced maternal age in third trimester Allergies No known active allergiesdocumented as of this encounter (statuses as of 01/27/2023) Medications Medication Sig Dispensed Refills Start Date [...] as of this encounter (statuses as of 01/27/2023) Active Problems Problem Noted Date Cervical high [...] as of this encounter (statuses as of 01/27/2023) Immunizations Name Administration Dates Next Due TDAP (age 10 and older)(Boostrix) 01/09/2023 documented as of this encounter Social History Tobacco Use Types Packs/Day Years Used Date Smoking Tobacco: Never Smokeless Tobacco: Never Tobacco Cessation:Counseling Given: Not Answered Alcohol Use Standard Drinks/Week Comments Not Currently [...] Sign Reading Time Taken Comments Blood Pressure 108/64 01/23/2023 4:45 PM EDT Pulse 75 01/23/2023 4:45 PM EDT Temperature 36.4 C (97.5 F) 01/23/2023 4:45 PM ED T Respiratory Rate 16 01/23/2023 4:45 PM EDT Oxygen Saturation 97% 01/23/2023 4:45 PM EDT Inhaled Oxygen Concentration - - Weight 87.3 kg (192 lb 6 oz) 01/23/2023 4:45 PM EDT Height - - Body Mass Index 35.19 01/09/2023 4:17 PM EDT documented in this encounter Progress Notes * Moe Lopez DO - 01/23/2023 4:59 PM EDT Images from the original note were not included. Assessment and Plan Well adult exam Educated the patient on routine and scheduled health maintenance items. Age appropriate preventive guidance provided to patient. Discussion of age appropriate generally recommended screening tests reviewed. Tests ordered in agreement with patient. Greater than half of visit spent on counselling and discussion of patient illness, along with pros and cons of various treatment options. Multigravida of advanced maternal age in third trimester 33wks [place] And doing well Some mild constipation and iron deficiency On iron, Some GERD sx and otherwise doing well History of Present Illness Salma Rankin is a 37 year old female that presents for Physical-Exam (Pt here for CPE, [id number] weeks. No concerns noted per pt.) Physical Exam Vitals: 01/23/23 1645 Temp: 36.4 C (97.5 F) Pulse: 75 Resp: 16 SpO2: 97% BP: 108/64 Physical Exam Constitutional: Appearance: Normal appearance. HENT: Head: Normocephalic and atraumatic. Eyes: Extraocular Movements: Extraocular movements intact. Pupils: Pupils are equal, round, and reactive to light. Cardiovascular: Rate and Rhythm: Normal rate and regular rhythm. Pulmonary: Effort: Pulmonary effort is normal. Breath sounds: Normal breath sounds. Neurological: General: No focal deficit present. Mental Status: She is alert and oriented to person, place, and time. Psychiatric: Mood and Affect: Mood normal. Behavior: Behavior normal. Wrap-Up Follow Up: Return in about 1 year (around 01/24/2024). Time: Total time today was 25 minutes excluding any time spent in the performance of separately billed services. documented in this encounter Plan of Treatment Upcoming Encounters Date Type Specialty Care Team Description 01/28/2023 Office Visit Gynecology Obstetrics Backer, TANESHA Cha [address] [place] [address] Health Maintenance Due Date Last Done Comments Diabetes Screening 1985 Hepatitis B (1 of 3 - 3-dose series) 1985 COVID-19 Vaccine (#1) 1985 Influenza Vaccine (FLU shot) (#1) 2022 Depression Screening 01/24/2024 01/23/2023 Pap Smear 07/30/2025 [...] as of this encounter Visit Diagnoses Diagnosis Well adult exam- Primary Routine general medical examination at a health care facility Multigravida of advanced maternal age in third trimester documented in this encounter
--- OUTSIDE RECORDS SUMMARY | 2023-02-28 00:32 | External Medical Summary ---
Author Name Unknown Address Unknown Organization [id number]:[facility] [address] - [address] [place] [address] Laboratory Report Ordering Provider Test Date Status ALDO EDGAR 12/23/2022 09:39:58 Final Observation Date Value Abnormality Reference (Units ) Status Glucose [Mass/volume] in Serum or Plasma --1 hour post dose glucose 12/23/2022 09:39:58 181 Above high normal 70-179 (mg/dL) Final Performing Location [facility] [address] - [address] [place] [address]
--- OUTSIDE RECORDS SUMMARY | 2023-02-28 00:32 | External Medical Summary ---
Author Name Unknown Address Unknown Organization [id number] [address] - [address] [place] [address] Laboratory Report Ordering Provider Test Date Status ALDO EDGAR 12/23/2022 11:41:10 Final Observation Date Value Abnormality Reference (Units ) Status Glucose [Mass/volume] in Serum or Plasma --3 hours post dose glucose 12/23/2022 11:41:10 75 70-139 (mg/dL) Final Performing Location [facility] [address] - [address] [place] [address]
--- OUTSIDE RECORDS SUMMARY | 2023-02-28 00:32 | External Medical Summary ---
Author Name Unknown Address Unknown Organization [id number]:LAB[facility]ORY [facility]HAEL [address] - [address] [place] [address] Laboratory Report Ordering Provider Test Date Status BLANCABACKER 01/28/2023 12:11:27 Final Observation Date Value Abnormality Reference (Units ) Status WBC, Total 01/28/2023 12:11:27 6.08 4.00-10.8 0 (K/uL) Final RBC 01/28/2023 12:11:27 4.35 3.85-5.15 (M/uL) Final Hemoglobin 01/28/2023 12:11:27 12.6 12.0-15.3 (g/dL) Final HCT 01/28/2023 12:11:27 38.6 36.0-45.2 (%) Final MCV 01/28/2023 12:11:27 88.7 81.5-97.5 (fL) Final MCH 01/28/2023 12:11:27 29.0 27.0-34.0 (pg) Final MCHC 01/28/2023 12:11:27 32.6 32.0-36.0 (g/dL) Final RDW 01/28/2023 12:11:27 13.4 11.5-15.5 (%) Final Platelets 01/28/2023 12:11:27 151 140-400 (K /uL) Final MPV 01/28/2023 12:11:27 10.2 6.6-11.1 ( fL) Final Performing Location [facility] [address] [place] [address]
--- OUTSIDE RECORDS SUMMARY | 2023-02-28 00:32 | External Medical Summary ---
Author Name Unknown Address Unknown Organization [id number] [address] - [address] [place] [address] Laboratory Report Ordering Provider Test Date Status ALDO EDGAR 12/23/2022 08:36:44 Final Based on ACOG guideline, ges tational diabetes mellitus is diagnosed when any of the following is met:
Fasting is greater than or equal to 95 mg/dL
1 hour is greater than or equal to 180 mg/dL
2 hour is greater than or equal to 155 mg/dL
3 hour is greater than or equal to 140 mg/dL Observation Date Value Abnormality Reference (Units ) Status Glucose, fasting 12/23/2022 08:36:44 81 70- 94 (mg/dL) Final Performing Location [facility] [address] - [address] [place] [address]
--- OUTSIDE RECORDS SUMMARY | 2023-02-28 00:33 | External Medical Summary ---
Author Name Unknown Address Unknown Organization [id number]:LABORATORY [facility] - [address] [place] [address] Laboratory Report Ordering Provider Test Date Status ALDO EDGAR 08/30/2022 11:53:18 Final Observation Date Value Abnormality Reference (Units ) Status TSH 08/30/2022 11:53:18 1.46 0.27-4.20 (uIU/mL) Final Performing Location [facility] - [address] [place] [address]
--- OUTSIDE RECORDS SUMMARY | 2023-02-28 00:33 | External Medical Summary ---
Author Name Unknown Address Unknown Organization [id number]:[facility] [place] [address] [facility] [place] [address] Laboratory Report Ordering Provider Test Date Status ALDO EDGAR 12/19/2022 12:27:11 Final Observation Date Value Abnormality Reference (Units ) Status SYNC LEUKOCYTES IN BLOOD BY AUTOMATED COUNT 12/19/2022 12:27:11 6.65 4.00-10.80 (K/uL) Final Segs 12/19/2022 12:27:11 74.9 40.0-75.0 (%) Final Lymphs % 12/19/2022 12:27:11 14.3 Below low normal 18.0-42.0 (%) Final Monos 12/19/2022 12:27:11 9.2 1.0-11.0 (%) Final Eosinophils 12/19/2022 12:27:11 0.5 0.0-6.0 (%) Final Basos 12/19/2022 12:27:11 0.3 0.0-2.0 (%) Final Immature Granulocyte, Percent 12/19/2022 12:27:11 0.8 0.0-2.0 (%) Final Absolute Segs 12/19/2022 12:27:11 4.99 1.80-7.70 (K/uL) Final Lymphs, absolute 12/19/2022 12:27:11 0.95 Below low normal 1.00-4.80 (K/ul) Final Monos, Abs 12/19/2022 12:27:11 0.61 0.00-1.10 (K/uL) Final Eos, Abs 12/19/2022 12:27:11 0.03 0.00-0.70 (K/uL) Final Basos, Abs 12/19/2022 12:27:11 0.02 0.00-0.20 (K/uL) Final Immature Granulocytes, Number 12/19/2022 12:27:11 0.05 0.00-0.20 (K/uL) Final Performing Location [facility] [place] [facility] [address] [place] [address]
--- OUTSIDE RECORDS SUMMARY | 2023-02-28 00:33 | External Medical Summary | Summary of Care ---
Author Name Unknown Organization [facility] Address [address] [facility] [address] Phone [phone] Care Team Providers Care Draw Frame Operator Name Role Phone Unavailable Primary Care Provider Unavailabl e Reason for Visit * Reason Comments Outpatient Testing Encounter Details Date Type Department Care Team Description 12/19/2022 Laboratory Laboratory, [facility] [place] [phone] [facility] [address] [facility] [place] [address] Normal in second trimester Allergies No known active allergiesdocumented as of this encounter (statuses as of 12/19/2022) Medications Medication Sig Dispensed Refills Start Date [...] as of this encounter (statuses as of 12/19/2022) Active Problems Problem Noted Date Cervical high [...] as of this encounter (statuses as of 12/19/2022) Social History Tobacco Use Types Packs/Day Years [...] file Travel History Travel Start Travel End [place] 11/21/2022 11/30/2022 documented as of this encounter Plan of Treatment Upcoming Encounters Date Type Specialty Care Team Description 01/23/2023 Office Visit Family Medicine Moe Lopez DO [address] [place] [address] Pending Results Name Type Priority Associated Diagnoses Date /Time 50-G GESTATIONAL GLUCOSE, 1 HOUR Lab Routine Normal in second trimester 12/19/2022 12:27 PM EDT CBC WITH WBC DIFFERENTIAL AND ANEMIA REFLEX WORKUP Lab Routine Normal in second trimester 12/19/2022 12:27 PM EDT SYPHILIS ANTIBODY SCREEN WITH REFLEX TO RPR Lab Routine Normal in second trimester 12/19/2022 12:27 PM EDT ANEMIA CBC Lab Routine Normal in second trimester 12/19/2022 12:27 PM EDT DIFFERENTIAL, AUTOMATED Lab Routine Normal in second trimester 12/19/2022 12:27 PM EDT ANEMIA REFLEX CHEMISTRY HOLD Lab Routine Normal in second trimester 12/19/2022 12:27 PM EDT SYPHILIS ANTIBODY SCREEN Lab Routine Normal in second trimester 12/19/2022 12:27 PM EDT Health Maintenance Due Date Last Done Comments Diabetes Screening 1985 Hepatitis B (1 of 3 - 3-dose series) 1985 COVID-19 Vaccine (#1) 1985 Depression Screening, Annual for Pts 12 and Over 1997 DTaP,Tdap,and Td Vaccines (1 - Tdap) [...] as of this encounter Visit Diagnoses Diagnosis Normal in second trimester documented in this encounter
--- OUTSIDE RECORDS SUMMARY | 2023-02-28 00:33 | External Medical Summary | Summary of Care ---
Author Name Unknown Organization [facility] Address [address] [facility] [place] [address] Phone [phone] Care Team Providers Care Cellar Packer Name Role Phone Unavailable Primary Care Provider Unavailabl e Reason for Visit * Reason Comments Return Visit Encounter Details Date Type Department Care Team Description 11/01/2022 Office Visit Gynecology/Obstetrics [facility] [address] [place] [address] Latanya Jolly PA-C [address] [place] [address] Normal in second trimester*; Multigravida of advanced maternal age in second trimester; Antepartum anemia complicating Allergies No known active allergiesdocumented as of this encounter (statuses as of 11/01/2022) Medications Medication Sig Dispensed Refills Start Date End Date Status Adult Gummy/DHA/FA 0.4-25 MG Oral Tablet Chewable Take by mouth. 0 Active Promethazine HCl 25 MG Rectal Suppository (Phenergan)Indication s:Nausea and vomiting during Administer 1 Suppository into the rectum every 6 hours as needed for Nausea. 30 Each 1 07/30/2022 Active Additional Information Patient not taking.Reported on 08/30/2022 Iron-Vitamin C 65-125 MG Oral Tablet (Vitron C)Indications:Antepar behzad anemia complicating Take 1 Tablet by mouth daily. 90 Tablet 2 07/31/2022 Active Ondansetron 4 MG Oral Tablet Disintegrating (Zofran) Place 1 Tablet on tongue every 8 hours as needed for Nausea. dissolve on tongue. 20 Tablet 1 08/30/2022 Active documented as of this encounter (statuses as of 11/01/2022) Active Problems Problem Noted Date Cervical high [...] as of this encounter (statuses as of 11/01/2022) Social History Tobacco Use Types Packs/Day Years [...] Sign Reading Time Taken Comments Blood Pressure 108/62 11/01/2022 9:19 AM EDT Pulse - - Temperature - - Respiratory Rate - - Oxygen Saturation - - Inhaled Oxygen Concentration - - Weight 80.5 kg (177 lb 6.4 oz) 11/01/2022 9:19 A M EDT Height 157.5 cm (5' 2") 11/01/2022 9:19 AM EDT Body Mass Index 32.45 11/01/2022 9:19 AM EDT documented in this encounter Progress Notes * Latanya Jolly PA-C - 11/01/2022 9:30 AM EDT 22w0d Anatomy completed today -- final report pending. + FHT by ultrasound. Denies concerns. No bleeding/leaking/contractions. Has upcoming trip to [place] for work. Plans to fly. Reviewed DVT precautions. Blood type A+, records printed for her today. RTC in 4 weeks Latanya Jolly PA-C documented in this encounter Nursing Notes * Vanessa Gross LPN - 11/01/2022 9:30 AM EDT 22w0d Anatomy scan today- having a girl. Will be traveling to [place] next month- will print episode today. documented in this encounter Plan of Treatment Upcoming Encounters Date Type Specialty Care Team Description 12/06/2022 Office Visit Gynecology Obstetrics Latanya Jolly PA-C [address] [place] [address] 01/23/2023 Office Visit Family Medicine Moe Lopez DO [address] [place] [address] Health Maintenance Due Date Last Done Comments Diabetes Screening 1985 Hepatitis B (1 of 3 - 3-dose series) 1985 COVID-19 Vaccine (#1) 1985 Depression Screening, Annual for Pts 12 and Over 1997 DTaP,Tdap,and Td Vaccines (1 - Tdap) 2004 Influenza Vaccine (FLU shot) (#1) 2022 Pap Smear 07/31/2027 07/30/2022 Hepatitis C Screening Discontinued 07/30/2022 [...] encounter Visit Diagnoses Diagnosis Normal in second trimester- Primary Multigravida of advanced maternal age in second trimester Antepartum anemia complicating Anemia, antepartum documented in this encounter
--- OUTSIDE RECORDS SUMMARY | 2023-02-28 00:33 | External Medical Summary ---
Author Name Unknown Address Unknown Organization [id number]:LABORATORY [facility] [place] - [address] [place] [address] Laboratory Report Ordering Provider Test Date Status HERVEALDO 12/19/2022 12:27:11 Final Observation Date Value Abnormality Reference (Units ) Status Iron 12/19/2022 12:27:11 95 33-151 (ug /dL) Final Iron-binding capacity 12/19/2022 12:27:11 364 250-425 (ug/dL) Final Transferrin Sat % 12/19/2022 12:27:11 26 15 -55 (%) Final Performing Location LABORATORY C - [address] [place] [address]
--- OUTSIDE RECORDS SUMMARY | 2023-02-28 00:33 | External Medical Summary | Summary of Care ---
Author Name Unknown Organization [facility] Address [address] [facility] [address] Phone [phone] Care Team Providers Care Counterintelligence Analyst Name Role Phone Unavailable Primary Care Provider Unavailabl e Reason for Visit * Reason Comments Outpatient Testing Encounter Details Date Type Department Care Team Description 08/30/2022 Laboratory Laboratory, [facility] [address] [facility] [place] [phone] [facility] [place] [address] Antepartum anemia complicating Allergies No known active allergiesdocumented as of this encounter (statuses as of 08/30/2022) Medications Medication Sig Dispensed Refills Start Date [...] as of this encounter (statuses as of 08/30/2022) Active Problems Problem Noted Date Cervical high [...] as of this encounter (statuses as of 08/30/2022) Social History Tobacco Use Types Packs/Day Years [...] Encounters Date Type Specialty Care Team Description 09/27/2022 Office Visit Gynecology Obstetrics Araceli Arriola CRNP [address] [place] [address] 01/23/2023 Office Visit Family Medicine Moe Lopez DO [address] [place] [address] Pending Results Name Type Priority Associated Diagnoses Date /Time CBC WITH WBC DIFFERENTIAL AND ANEMIA REFLEX WORKUP Lab Routine Antepartum anemia complicating 08/30/2022 11:53 AM EDT ANEMIA CBC Lab Routine Antepartum anemia complicating 08/30/2022 11:53 AM EDT DIFFERENTIAL, AUTOMATED Lab Routine Antepartum anemia complicating 08/30/2022 11:53 AM EDT ANEMIA REFLEX CHEMISTRY HOLD Lab Routine Antepartum anemia complicating 08/30/2022 11:53 AM EDT Health Maintenance Due Date Last Done Comments Diabetes Screening 1985 Hepatitis B (1 of 3 - 3-dose series) 1985 COVID-19 Vaccine (#1) 1985 Depression Screening, Annual for Pts 12 and Over 1997 DTaP,Tdap,and Td Vaccines (1 - Tdap) 2004 Influenza Vaccine (FLU shot) (Season Ended) 2022 Pap Smear 07/31/2027 07/30/2022 Hepatitis C Screening Discontinued 07/30/2022 GARDASIL-HPV IMMUNIZATION SERIES Aged Out No [...] as of this encounter Visit Diagnoses Diagnosis Antepartum anemia complicating Anemia, antepartum documented in this encounter
--- OUTSIDE RECORDS SUMMARY | 2023-02-28 00:33 | External Medical Summary ---
Author Name Unknown Address Unknown Organization [id number]:[facility] [place] [address] [facility] [address] Laboratory Report Ordering Provider Test Date Status ALDO EDGAR 08/30/2022 11:53:18 Final Observation Date Value Abnormality Reference (Units ) Status WBC, Total 08/30/2022 11:53:18 7.07 4.00-10.8 0 (K/uL) Final RBC 08/30/2022 11:53:18 4.17 3.85-5.15 (M/uL) Final Hemoglobin 08/30/2022 11:53:18 12.0 12.0-15.3 (g/dL) Final Anemia reflex testing trigge rs on a HGB < 12.0 for Females and HGB < 13.0 for Males in accordance with the WHO Anemia Guidelines
Anemia reflex testing triggers on a HGB < 12.0 for Females and HGB < 13.0 for Males in accordance with the WHO Anemia Guidelines HCT 08/30/2022 11:53:18 38.4 36.0-45.2 (%) Final MCV 08/30/2022 11:53:18 92.1 81.5-97.5 (fL) Final MCH 08/30/2022 11:53:18 28.8 27.0-34.0 (pg) Final MCHC 08/30/2022 11:53:18 31.3 32.0-36.0 (g/dL) Final RDW 08/30/2022 11:53:18 13.6 11.5-15.5 (%) Final Platelets 08/30/2022 11:53:18 190 140-400 (K /uL) Final MPV 08/30/2022 11:53:18 10.4 6.6-11.1 ( fL) Final Nucleated erythrocytes/100 leukocytes [Ratio] in Blood by Automated count 08/30/2022 11:53:18 0 <=0 (/100 WBCs) [facility] Performing Location LAB[facility]ORY [facility] - [address] [facility] [address]
--- OUTSIDE RECORDS SUMMARY | 2023-02-28 00:33 | External Medical Summary | Summary of Care ---
Author Name Unknown Organization [facility] Address [address] [facility] [place] [address] Phone [phone] Care Team Providers Care Welding Machine Operator Arc Name Role Phone Unavailable Primary Care Provider Unavailabl e Reason for Visit * Reason Comments Return Visit Encounter Details Date Type Department Care Team Description 11/01/2022 Office Visit Gynecology/Obstetrics [facility] [address] [place] [address] Latanya Jolly PA-C [address] [place] [address] Normal in second trimester*; Multigravida of advanced [...] having a girl. Will be traveling to [place] next month- will print episode today. documented in this encounter Plan of Treatment Upcoming Encounters Date Type Specialty Care Team Description 12/06/2022 Office Visit Gynecology Obstetrics Latanya Jolly PA-C [address] [place] [address] 01/23/2023 Office Visit Family Medicine Moe Lopez DO [address] [place] [address] Health Maintenance Due Date Last Done Comments [...]
--- OUTSIDE RECORDS SUMMARY | 2023-02-28 00:33 | External Medical Summary | Summary of Care ---
Author Name Unknown Organization [facility] Address [address] [facility] [place] [address] Phone [phone] Care Team Providers Care Dry Curer Name Role Phone Unavailable Primary Care Provider Unavailabl e Reason for Visit * Reason Comments Return Visit Encounter Details Date Type Department Care Team Description 08/30/2022 Office Visit Gynecology/Obstetrics [facility] [address] [place] [address] Latanya Jolly PA-C [address] [place] [address] Normal intrauterine , antepartum*; Antepartum multigravida of advanced maternal age; Antepartum anemia complicating Allergies No known active [...] Sign Reading Time Taken Comments Blood Pressure 122/74 08/30/2022 11:26 AM EDT Pulse - - Temperature - - Respiratory Rate - - Oxygen Saturation - - Inhaled Oxygen Concentration - - Weight 73 kg (161 lb) 08/30/2022 11:26 AM EDT Height 157.5 cm (5' 2") 08/30/2022 11:26 AM EDT Body Mass Index 29.45 08/30/2022 11:26 AM EDT documented in this encounter Progress Notes * Latanya Jolly PA-C - 08/30/2022 11:46 AM EDT 13w0d Continues to struggle with nausea and vomiting. Reports about every other day. Has struggled to take some of her prenatals and iron pills. Was not able to potato picker phenergan suppositories. Zofran 4 mgTID subling tabs sent. ED precautions given. Started on daily oral iron, h/o anemia in the past on oral iron. Repeat CBC today. Counseled on AMA and increase risk of genetic abnormalities. Patient states interested in Qnatal, would like to confirm insurance coverage prior to completing. Recommended she notify office if she desires order be placed. RTC in 4 weeks Latanya Jolly PA-C documented in this encounter Nursing Notes * Vanessa Gross LPN - 08/30/2022 11:29 AM EDT 13w0d Nausea, vomitting. Unable to get phenergan suppository from pharmacy. Feeling week and fatigued. documented in this encounter Plan of Treatment Upcoming Encounters Date Type Specialty Care Team Description 09/27/2022 Office Visit Gynecology Obstetrics Araceli Arriola CRNP [address] [place] [address] 01/23/2023 Office Visit Family Medicine Moe Lopez DO [address] [place] [address] Pending Results Name Type Priority Associated Diagnoses Date /Time CBC WITH WBC DIFFERENTIAL AND ANEMIA REFLEX WORKUP Lab Routine Antepartum anemia complicating 08/30/2022 11:53 AM EDT Scheduled Orders Name Type Priority Associated Diagnoses Orde r Schedule CBC WITH WBC DIFFERENTIAL AND ANEMIA REFLEX WORKUP Lab Routine Antepartum anemia complicating Expected: 08/30/2022, Expires: 08/31/2023 Health Maintenance Due Date Last Done Comments [...] of this encounter Visit Diagnoses Diagnosis Normal intrauterine , antepartum- Primary Antepartum multigravida of advanced maternal age Antepartum anemia complicating Anemia, antepartum documented in this encounter
--- OUTSIDE RECORDS SUMMARY | 2023-02-28 00:33 | External Medical Summary | Summary of Care ---
Author Name Unknown Organization [facility] Address [address] [facility] [address] Phone [phone] Care Team Providers Care Senior Engineering Team Leader Name Role Phone Unavailable Primary Care Provider Unavailabl e Reason for Visit * Reason Comments Return Visit Encounter Details Date Type Department Care Team Description 09/27/2022 Office Visit Gynecology/Obstetrics [facility] [address] [place] [address] Araceli Arriola CRNP [address] [place] [address] Multigravida of advanced maternal age in second trimester*; Normal in second trimester; Antepartum anemia complicating Allergies No known active allergiesdocumented as of this encounter (statuses as of 09/27/2022) Medications Medication Sig Dispensed Refills Start Date [...] as of this encounter (statuses as of 09/27/2022) Active Problems Problem Noted Date Cervical high [...] as of this encounter (statuses as of 09/27/2022) Social History Tobacco Use Types Packs/Day Years [...] Sign Reading Time Taken Comments Blood Pressure 110/64 09/27/2022 1:34 PM EDT Pulse - - Temperature - - Respiratory Rate - - Oxygen Saturation - - Inhaled Oxygen Concentration - - Weight - - Height 157.5 cm (5' 2") 09/27/2022 1:34 PM EDT Body Mass Index - - documented in this encounter Progress Notes * TANESHA Blankenship - 09/27/2022 1:46 PM EDT 17w Some tingling in fingertips of left hand, worse at night. Suggest chiropractor, changing sleeping positions. Pain in tailbone, suggest she try a seat cushion. Discussed previous Qnatal showing low fraction. She has decided not to repeat this. Anatomy u/s with next visit. TANESHA Blankenship documented in this encounter Nursing Notes * Blanca Vargas LPN - 09/27/2022 1:32 PM EDT 17w0d Tips of fingers on left hand tingle PALMER's Pain in tailbone daily documented in this encounter Plan of Treatment Upcoming Encounters Date Type Specialty Care Team Description 11/01/2022 Imaging Radiology 11/01/2022 Office Visit Gynecology Obstetrics Latanya Jolly PA-C [address] [place] [address] 01/23/2023 Office Visit Family Medicine Moe Lopez DO [address] [place] [address] Scheduled Orders Name Type Priority Associated Diagnoses Orde r Schedule US PREG SINGLE/1ST GEST, 14 WEEKS OR LATER Medical Imaging Routine Normal in second trimester Expected: 10/11/2022 (Approximate), Expires: 10/28/2023 Health Maintenance Due Date Last Done Comments [...] Diagnosis Multigravida of advanced maternal age in second trimester- Primary Normal in second trimester Antepartum anemia complicating Anemia, antepartum documented in this encounter
--- OUTSIDE RECORDS SUMMARY | 2023-02-28 00:33 | External Medical Summary ---
Author Name Unknown Address Unknown Organization : Laboratory Report Ordering Provider Test Date Status ALDO EDGAR 09/06/2022 09:52:20 Final Observation Date Value Abnormality Reference (Units ) Status NUMBER OF FETUSES? 09/06/2022 09:52:20 1 Final ADVANCED MATERNAL AGE? 09/06/2022 09:52:20 YES Final ABNORMAL TOO? 09/06/2022 09:52:20 NO Final ABNORMAL US? 09/06/2022 09:52:20 NOT GIVEN Final PERSONAL/FAM HISTORY? 09/06/2022 09:52:20 NOT GIVEN Final INTERPRETATION 09/06/2022 09:52:20 SEE BELOW Final Test Not Performed. Unable t o report due to low
fraction. Low fraction can be
sample-specific, or can be associated with other
factors such as maternal obesity and, if
recurring, aneuploidy. If clinically
indicated, consider repeating the sample
collection, traditional maternal serum screening,
or performing an invasive diagnosis. TRISOMY 21 (T21) 09/06/2022 09:52:20 SEE BELOW Final Test Not Performed. Unable t o report due to low
fraction. Low fraction can be
sample-specific, or can be associated with other
factors such as maternal obesity and, if
recurring, aneuploidy. If clinically
indicated, consider repeating the sample
collection, traditional maternal serum screening,
or performing an invasive diagnosis. TRISOMY 18 (T18) 09/06/2022 09:52:20 SEE BELOW Final Test Not Performed. Unable t o report due to low
fraction. Low fraction can be
sample-specific, or can be associated with other
factors such as maternal obesity and, if
recurring, aneuploidy. If clinically
indicated, consider repeating the sample
collection, traditional maternal serum screening,
or performing an invasive diagnosis. TRISOMY 13 (T13) 09/06/2022 09:52:20 SEE BELOW Final Test Not Performed. Unable t o report due to low
fraction. Low fraction can be
sample-specific, or can be associated with other
factors such as maternal obesity and, if
recurring, aneuploidy. If clinically
indicated, consider repeating the sample
collection, traditional maternal serum screening,
or performing an invasive diagnosis. Y CHROMOSOME 09/06/2022 09:52:20 SEE BELOW Final Test Not Performed. Unable t o report due to low
fraction. Low fraction can be
sample-specific, or can be associated with other
factors such as maternal obesity and, if
recurring, aneuploidy. If clinically
indicated, consider repeating the sample
collection, traditional maternal serum screening,
or performing an invasive diagnosis. Y CHR. INTERPRETATION 09/06/2022 09:52:20 SEE BELOW Final Test Not Performed. Unable t o report due to low
fraction. Low fraction can be
sample-specific, or can be associated with other
factors such as maternal obesity and, if
recurring, aneuploidy. If clinically
indicated, consider repeating the sample
collection, traditional maternal serum screening,
or performing an invasive diagnosis. SEX CHROMOSOME 09/06/2022 09:52:20 SEE BELOW Final Test Not Performed. Unable t o report due to low
fraction. Low fraction can be
sample-specific, or can be associated with other
factors such as maternal obesity and, if
recurring, aneuploidy. If clinically
indicated, consider repeating the sample
collection, traditional maternal serum screening,
or performing an invasive diagnosis. SEX CHROMOSOME INTERP 09/06/2022 09:52:20 SEE BELOW Final Test Not Performed. Unable t o report due to low
fraction. Low fraction can be
sample-specific, or can be associated with other
factors such as maternal obesity and, if
recurring, aneuploidy. If clinically
indicated, consider repeating the sample
collection, traditional maternal serum screening,
or performing an invasive diagnosis. MICRODELETION 09/06/2022 09:52:20 SEE BELOW Final Test Not Performed. Unable t o report due to low
fraction. Low fraction can be
sample-specific, or can be associated with other
factors such as maternal obesity and, if
recurring, aneuploidy. If clinically
indicated, consider repeating the sample
collection, traditional maternal serum screening,
or performing an invasive diagnosis. MICRODELETION INTERP 09/06/2022 09:52:20 SEE BELOW Final Test Not Performed. Unable t o report due to low
fraction. Low fraction can be
sample-specific, or can be associated with other
factors such as maternal obesity and, if
recurring, aneuploidy. If clinically
indicated, consider repeating the sample
collection, traditional maternal serum screening,
or performing an invasive diagnosis. GESTATIONAL AGE (IN WEEKS) 09/06/2022 09:52:20 SEE BELOW Final Test Not Performed. Unable t o report due to low
fraction. Low fraction can be
sample-specific, or can be associated with other
factors such as maternal obesity and, if
recurring, aneuploidy. If clinically
indicated, consider repeating the sample
collection, traditional maternal serum screening,
or performing an invasive diagnosis. GESTATIONAL AGE (IN DAYS) 09/06/2022 09:52:20 SEE BELOW Final Test Not Performed. Unable t o report due to low
fraction. Low fraction can be
sample-specific, or can be associated with other
factors such as maternal obesity and, if
recurring, aneuploidy. If clinically
indicated, consider repeating the sample
collection, traditional maternal serum screening,
or performing an invasive diagnosis. FRACTION 09/06/2022 09:52:20 SEE BELOW Final Test Not Performed. Unable t o report due to low
fraction. Low fraction can be
sample-specific, or can be associated with other
factors such as maternal obesity and, if
recurring, aneuploidy. If clinically
indicated, consider repeating the sample
collection, traditional maternal serum screening,
or performing an invasive diagnosis. LABORATORY COMMENTS 09/06/2022 09:52:20 SEE BELOW Final Test Not Performed. Unable t o report due to low
fraction. Low fraction can be
sample-specific, or can be associated with other
factors such as maternal obesity and, if
recurring, aneuploidy. If clinically
indicated, consider repeating the sample
collection, traditional maternal serum screening,
or performing an invasive diagnosis. LIMITATIONS 09/06/2022 09:52:20 SEE BELOW Final Test Not Performed. Unable t o report due to low
fraction. Low fraction can be
sample-specific, or can be associated with other
factors such as maternal obesity and, if
recurring, aneuploidy. If clinically
indicated, consider repeating the sample
collection, traditional maternal serum screening,
or performing an invasive diagnosis. SPECIFICATIONS 09/06/2022 09:52:20 SEE BELOW Final Test Not Performed. Unable t o report due to low
fraction. Low fraction can be
sample-specific, or can be associated with other
factors such as maternal obesity and, if
recurring, aneuploidy. If clinically
indicated, consider repeating the sample
collection, traditional maternal serum screening,
or performing an invasive diagnosis. METHODOLOGY 09/06/2022 09:52:20 SEE BELOW Final Test Not Performed. Unable t o report due to low
fraction. Low fraction can be
sample-specific, or can be associated with other
factors such as maternal obesity and, if
recurring, aneuploidy. If clinically
indicated, consider repeating the sample
collection, traditional maternal serum screening,
or performing an invasive diagnosis.
This test was developed and its analytical
performance characteristics have been determined
by [facility]. It has not been cleared or approved by
FDA. This assay has been validated pursuant to the
CLIA regulations and is used for clinical
purposes.
Test performed by [facility]
[address],
[place] [address]

Tool And Die Designer: Pratima Albright MD,PHD,ELEONORA
Test Reported by [facility],
[facility],
[address] [place], [place]
Sudhakar Solis M.D., Ph.D., Director of Laboratories
, CLIA [id number] Performing Location
--- OUTSIDE RECORDS SUMMARY | 2023-02-28 00:33 | External Medical Summary ---
Author Name Unknown Address Unknown Organization K01:[place] [facility] [place] [address] [place] [address] Laboratory Report Ordering Provider Test Date Status ALDO EDGAR 12/19/2022 12:27:11 Final Observation Date Value Abnormality Reference (Units ) Status Ferritin 12/19/2022 12:27:11 25 13-150 (ng /mL) Final Performing Location LABORATORY [facility] - [address] [place] [address]
--- OUTSIDE RECORDS SUMMARY | 2023-02-28 00:33 | External Medical Summary ---
Author Name Unknown Address Unknown Organization K01:[place] [facility] [place] [address] [place] [address] Laboratory Report Ordering Provider Test Date Status ALDO EDGAR 12/19/2022 12:27:11 Final Observation Date Value Abnormality Reference (Units ) Status Retic, % (auto) 12/19/2022 12:27:11 1.84 0.80-1.90 (%) Final Reticulocytes, Absolute 12/19/2022 12:27:11 74.3 31.3-100.1 (K/uL) Final Reticulocyte fraction, immature 12/19/2022 12:27:11 19.5 2.5-20.6 (%) Final Reticulocyte HGB 12/19/2022 12:27:11 32.2 29.7-37.4 (pg) Final Performing Location [place] [facility] [place] [address] [place] [address]
--- OUTSIDE RECORDS SUMMARY | 2023-02-28 00:33 | External Medical Summary ---
Author Name Unknown Address Unknown Organization K01:LABORATORY [place] [address] [place] [address] Laboratory Report Ordering Provider Test Date Status ALDO EDGAR 12/19/2022 12:27:11 Final Observation Date Value Abnormality Reference (Units ) Status Creatinine 12/19/2022 12:27:11 0.5 0.5-1.0 (mg/dL) Final Glomerular filtration rate/1.73 sq M.predicted [Volume Rate/Area] in Serum, Plasma or Blood by Creatinine-based formula (CKD-EPI) 12/19/2022 12:27:11 >90 >=60 (mL/min) Final eGFR is calculated based on the CKD-EPI 2020 equation Performing Location LABORATORY [facility] [place] - [facility] [address] [place] [address]
--- OUTSIDE RECORDS SUMMARY | 2023-02-28 00:33 | External Medical Summary ---
Author Name Unknown Address Unknown Organization K01:LABORATORY [facility] [place] - [address] [place] [address] Laboratory Report Ordering Provider Test Date Status HERVEALDO 08/30/2022 11:53:18 Final Observation Date Value Abnormality Reference (Units ) Status SYNC LEUKOCYTES IN BLOOD BY AUTOMATED COUNT 08/30/2022 11:53:18 7.07 4.00-10.80 (K/uL) Final Segs 08/30/2022 11:53:18 71.9 40.0-75.0 (%) Final Lymphs % 08/30/2022 11:53:18 18.2 18.0-42.0 (%) Final Monos 08/30/2022 11:53:18 8.3 1.0-11.0 (%) Final Eosinophils 08/30/2022 11:53:18 0.4 0.0-6.0 (%) Final Basos 08/30/2022 11:53:18 0.1 0.0-2.0 (%) Final Immature Granulocyte, Percent 08/30/2022 11:53:18 1.1 0.0-2.0 (%) Final Absolute Segs 08/30/2022 11:53:18 5.07 1.80-7.70 (K/uL) Final Lymphs, absolute 08/30/2022 11:53:18 1.29 1.00-4.80 (K/ul) Final Monos, Abs 08/30/2022 11:53:18 0.59 0.00-1.10 (K/uL) Final Eos, Abs 08/30/2022 11:53:18 0.03 0.00-0.70 (K/uL) Final Basos, Abs 08/30/2022 11:53:18 0.01 0.00-0.20 (K/uL) Final Immature Granulocytes, Number 08/30/2022 11:53:18 0.08 0.00-0.20 (K/uL) Final Performing Location LABORATORY [facility] [place] - [address] [facility] [address]
--- OUTSIDE RECORDS SUMMARY | 2023-02-28 00:33 | External Medical Summary | Summary of Care ---
Author Name Unknown Organization [facility] Address [address] [facility] [address] Phone [phone] Care Team Providers Care Manager Corporate Name Role Phone Unavailable Primary Care Provider Unavailabl e Reason for Visit * Reason Comments Return Visit Encounter Details Date Type Department Care Team Description 12/06/2022 Office Visit Gynecology/Obstetrics [facility] [address] [place] [address] Latanya Jolly PA-C [address] [place] [address] Normal in second trimester*; Multigravida of advanced maternal age in second trimester; Antepartum anemia complicating ; Pain of left lower leg; Uterine size date discrepancy ; Other specified related conditions, second trimester Allergies No known active allergiesdocumented as of this encounter (statuses as of 12/06/2022) Medications Medication Sig Dispensed Refills Start Date End Date Status Adult Gummy/DHA/FA 0.4-25 MG Oral Tablet Chewable Take by mouth. 0 Active Promethazine HCl 25 MG Rectal Suppository (Phenergan)Indicati ons:Nausea and vomiting during Administer 1 Suppository into the rectum every 6 hours as needed for Nausea. 30 Each 1 07/30/2022 Active Additional Information Patient not taking.Reported on 08/30/2022 Iron-Vitamin C 65-125 MG Oral Tablet (Vitron C)Indications:Antep artum anemia complicating Take 1 Tablet by mouth daily. 90 Tablet 2 07/31/2022 Active Ondansetron 4 MG Oral Tablet Disintegrating (Zofran) Place 1 Tablet on tongue every 8 hours as needed for Nausea. dissolve on tongue. 20 Tablet 1 08/30/2022 3 Discontinue d(Medicatio n List Clean Up) documented as of this encounter (statuses as of 12/06/2022) Active Problems Problem Noted Date Cervical high [...] as of this encounter (statuses as of 12/06/2022) Social History Tobacco Use Types Packs/Day Years [...] file Travel History Travel Start Travel End [place] 11/21/2022 11/30/2022 documented as of this encounter Last Filed Vital Signs Vital Sign Reading Time Taken Comments Blood Pressure 100/60 12/06/2022 9:14 AM EDT Pulse - - Temperature - - Respiratory Rate - - Oxygen Saturation - - Inhaled Oxygen Concentration - - Weight 82.6 kg (182 lb) 12/06/2022 9:14 AM EDT Height - - Body Mass Index 33.29 11/01/2022 9:19 AM EDT documented in this encounter Progress Notes * Latanya Jolly PA-C - 12/06/2022 9:35 AM EDT 27w0d Had left leg/foot pain and swelling starting about a week ago. Did have recent travel on flight. Ptreports pain and swelling now improved. No calf pain aside from moreno horse cramping at night. Only in one let, pt state not sure which though as sleeping when it happens. Denies redness of calf, cp or SOB. Never had VTE. No swelling or calf tenderness on exam. Duplex left leg ordered -- STAT. Reviewed third tri labs. Pt unsure if will be able to tolerate glucose d/t nausea with sugar. Reviewed finger sticks 4x daily x 2 weeks. Pt states would like to try glucose first. S<D, growth ultrasound ordered. Denies bleeding/leaking/contractions. Pos fm. RTC in 2 weeks Latanya Jolly PA-C * Blanca Vargas LPN - 12/06/2022 9:14 AM EDT 27w0d Left leg pain and swelling for a week documented in this encounter Plan of Treatment Upcoming Encounters Date Type Specialty Care Team Description 12/19/2022 Laboratory Laboratory Dilcia Bahena [address] [place] [address] 12/19/2022 Imaging Radiology 01/23/2023 Office Visit Family Medicine Moe Lopez DO [address] [place] [address] Scheduled Orders Name Type Priority Associated Diagnoses Orde r Schedule 50-G GESTATIONAL GLUCOSE, 1 HOUR Lab Routine Normal in second trimester Expected: 12/06/2022 (Approximate), Expires: 12/07/2023 CBC WITH WBC DIFFERENTIAL AND ANEMIA REFLEX WORKUP Lab Routine Normal in second trimester Expected: 12/06/2022 (Approximate), Expires: 12/07/2023 SYPHILIS ANTIBODY SCREEN WITH REFLEX TO RPR Lab Routine Normal in second trimester Expected: 12/06/2022 (Approximate), Expires: 12/07/2023 VASC DUPLEX VENOUS LE UNILAT Medical Imaging STAT Pain of left lower leg Expected: 12/06/2022, Expires: 01/07/2024 US PREG FOLLOW-UP EACH FETUS Medical Imaging Routine Uterine size date discrepancy Other specified related conditions, second trimester Expected: 12/06/2022, Expires: 01/07/2024 Health Maintenance Due Date Last Done Comments [...] second trimester Antepartum anemia complicating Anemia, antepartum Pain of left lower leg Pain in limb Uterine size date discrepancy Uterine size date discrepancy, antepartum condition or complication Other specified related conditions, second trimester documented in this encounter
--- OUTSIDE RECORDS SUMMARY | 2023-02-28 00:33 | External Medical Summary | Summary of Care ---
Author Name Unknown Organization [facility] Address [address] [facility] [address] Phone [phone] Care Team Providers Care Nuclear Officer Name Role Phone Unavailable Primary Care Provider Unavailabl e Reason for Visit * Reason Comments Return Visit Encounter Details Date Type Department Care Team Description 12/19/2022 Office Visit Gynecology/Obstetrics [facility] [address] [place] [address] Araceli Arriola CRNP [address] [place] [address] Multigravida of advanced maternal age in third [...] file Travel History Travel Start Travel End [place] 11/21/2022 11/30/2022 documented as of this encounter Last Filed Vital Signs Vital Sign Reading Time Taken Comments Blood Pressure 100/58 12/19/2022 11:50 AM EDT Pulse - - Temperature - - Respiratory Rate - - Oxygen Saturation - - Inhaled Oxygen Concentration - - Weight 84.1 kg (185 lb 6.4 oz) 12/19/2022 11:50 AM EDT Height 157.5 cm (5' 2") 12/19/2022 11:50 AM EDT Body Mass Index 33.91 12/19/2022 11:50 AM EDT documented in this encounter Progress Notes * TANESHA Blankenship - 12/19/2022 12:26 PM EDT 28w6d Complaints: none. Leg pain and swelling from last week resolved. Feeling tired but overall fine. Good FM. No contractions, bleeding, or LOF. Growth u/s today, formal report pending. Glucola today. TDAP next visit. TANESHA Blankenship * Aviva Knight LPN - 12/19/2022 11:57 AM EDT 28w6d Completing 28wk labs today, pt denies any concerns. Would like to wait until next visit for tdap. documented in this encounter Plan of Treatment Upcoming Encounters Date Type Specialty Care Team Description 01/23/2023 Office Visit Family Medicine Moe Lopez, [address] [place] [address] Health Maintenance Due Date Last Done Comments [...]
--- OUTSIDE RECORDS SUMMARY | 2023-02-28 00:33 | External Medical Summary ---
Author Name Unknown Address Unknown Organization K01:LABORATORY [facility] [place] [address] [place] [address] Laboratory Report Ordering Provider Test Date Status ALDO EDGAR 12/19/2022 12:27:11 Final Observation Date Value Abnormality Reference (Units ) Status Vitamin B12 12/19/2022 12:27:11 328 518-2675 (pg/mL) Final Performing Location LABORATORY [facility] [place] [address] [place] [address]
--- OUTSIDE RECORDS SUMMARY | 2023-02-28 00:33 | External Medical Summary | Summary of Care ---
Author Name Unknown Organization [facility] Address [address] [address] Phone [phone] Care Team Providers Care Upholstery Trimmer Name Role Phone Unavailable Primary Care Provider Unavailabl e Reason for Visit * Reason Comments Outpatient Testing Encounter Details Date Type Department Care Team Description 09/06/2022 Laboratory Laboratory, [facility] [address] [facility] [place] [id number] [facility] [address] [facility] [place] [address] Multigravida of advanced maternal age in first trimester; Supervision of high-risk , unspecified trimester Allergies No known active allergiesdocumented as of this encounter (statuses as of 09/06/2022) Medications Medication Sig Dispensed Refills Start Date [...] as of this encounter (statuses as of 09/06/2022) Active Problems Problem Noted Date Cervical high [...] as of this encounter (statuses as of 09/06/2022) Social History Tobacco Use Types Packs/Day Years [...] Araceli Arriola CRNP [address] [place] [address] 01/23/2023 Office Visit Family Medicine Moe Lopez DO [address] [place] [address] Pending Results Name Type Priority Associated Diagnoses Date /Time QNATAL ADVANCED (QUEST) Lab Routine Multigravida of advanced maternal age in first trimester Supervision of high-risk , unspecified trimester 09/06/2022 9:52 AM EDT Health Maintenance Due Date Last [...] Diagnosis Multigravida of advanced maternal age in first trimester Supervision of high-risk , unspecified trimester documented in this encounter
--- OUTSIDE RECORDS SUMMARY | 2023-02-28 00:33 | External Medical Summary ---
Author Name Unknown Address Unknown Organization [id number]:[facility] [place] [address] Laboratory Report Ordering Provider Test Date Status ALDO EDGAR 12/19/2022 12:27:11 Final Observation Date Value Abnormality Reference (Units ) Status Glucose [Moles/volume] in Serum or Plasma --1 hour post 50 g glucose PO 12/19/2022 12:27:11 132 Above high normal 70-129 (mg/dL) Final Performing Location [facility] [place] [address]
--- OUTSIDE RECORDS SUMMARY | 2023-02-28 00:33 | External Medical Summary ---
Author Name Unknown Address Unknown Organization [id number]:[facility] - [address] [facility] [address] Laboratory Report Ordering Provider Test Date Status ALDO EDGAR 12/19/2022 12:27:11 Final Observation Date Value Abnormality Reference (Units ) Status TSH 12/19/2022 12:27:11 1.25 0.27-4.20 (uIU/mL) Final Performing Location [facility] - [address] [facility] [address]
--- OUTSIDE RECORDS SUMMARY | 2023-02-28 00:33 | External Medical Summary ---
Author Name Unknown Address Unknown Organization [id number]:[facility] - [address] [place] [address] Laboratory Report Ordering Provider Test Date Status ALDO EDGAR 12/19/2022 12:27:11 Final Observation Date Value Abnormality Reference (Units ) Status Treponema pallidum Ab [Presence] in Serum by Immunoassay 12/19/2022 12:27:11 Nonreactive Nonreactive Final No serologic evidence of syp hilis. No additional testing clinicially indicated at this time. Consider repeat testing in 2-4 weeks if acute or primary syphilis is suspected. Performing Location [facility] - [address] [place] [address]
--- OUTSIDE RECORDS SUMMARY | 2023-02-28 00:33 | External Medical Summary | Summary of Care ---
Author Name Unknown Organization [facility] Address [address] [facility] [place] [address] Phone [phone] Care Team Providers Care Boat Buffer Plastic Name Role Phone Unavailable Primary Care Provider Unavailabl e Encounter Details Date Type Department Care Team Description 09/03/2022 Telephone Gynecology/Obstetric[facility] [address] [place] [address] Latanya Jolly PA-C [address] [place] [address] Allergies No known active allergiesdocumented as of this encounter (statuses as of 09/23/2022) Medications Medication Sig Dispensed Refills Start Date [...] as of this encounter (statuses as of 09/23/2022) Active Problems Problem Noted Date Cervical high [...] as of this encounter (statuses as of 09/23/2022) Social History Tobacco Use Types Packs/Day Years [...] Miscellaneous Notes * Telephone Encounter - LUKE Moncada - 09/03/2022 1:02 PM EDT No authorization is required. Referral note sent back. Thank you * Telephone Encounter - Lora Parker LPN - 09/03/2022 12:40 PM EDT Please prior auth qnatal documented in this encounter Plan of Treatment Upcoming Encounters Date Type Specialty Care Team Description 09/27/2022 Office Visit Gynecology Obstetrics Araceli Arriola CRNP [address] [place] [address] 01/23/2023 Office Visit Family Medicine Moe Lopez DO [address] [place] [address] Health Maintenance Due Date Last Done Comments [...]
--- OUTSIDE RECORDS SUMMARY | 2023-02-28 00:33 | External Medical Summary ---
Author Name Unknown Address Unknown Organization [id number]:[facility] - [address] [facility] [place] [address] Laboratory Report Ordering Provider Test Date Status ALDO EDGAR 12/19/2022 12:27:11 Final Observation Date Value Abnormality Reference (Units ) Status WBC, Total 12/19/2022 12:27:11 6.65 4.00-10.8 0 (K/uL) Final RBC 12/19/2022 12:27:11 4.07 3.85-5.15 (M/uL) Final Hemoglobin 12/19/2022 12:27:11 11.4 Below low normal 12 .0-15.3 (g/dL) Final Anemia reflex testing trigge rs on a HGB < 12.0 for Females and HGB < 13.0 for Males in accordance with the WHO Anemia Guidelines
Anemia reflex testing triggers on a HGB < 12.0 for Females and HGB < 13.0 for Males in accordance with the WHO Anemia Guidelines HCT 12/19/2022 12:27:11 37.4 36.0-45.2 (%) Final MCV 12/19/2022 12:27:11 91.9 81.5-97.5 (fL) Final MCH 12/19/2022 12:27:11 28.0 27.0-34.0 (pg) Final MCHC 12/19/2022 12:27:11 30.5 32.0-36.0 (g/dL) Final RDW 12/19/2022 12:27:11 13.2 11.5-15.5 (%) Final Platelets 12/19/2022 12:27:11 162 140-400 (K /uL) Final MPV 12/19/2022 12:27:11 11.0 6.6-11.1 ( fL) Final Nucleated erythrocytes/100 leukocytes [Ratio] in Blood by Automated count 12/19/2022 12:27:11 0 <=0 (/100 WBCs) Fi nal Performing Location [facility] - [address] [facility] [address]
--- OUTSIDE RECORDS SUMMARY | 2023-02-28 00:33 | External Medical Summary ---
Author Name Unknown Address Unknown Organization K01:LABORATORY [facility] - [address] [place] [address] Laboratory Report Ordering Provider Test Date Status ALDO EDGAR 12/19/2022 12:27:11 Final Observation Date Value Abnormality Reference (Units ) Status Folic Acid 12/19/2022 12:27:11 14.1 >4.5 (ng/ mL) Final Performing Location LABORATORY [facility] - [address] [place] [address]
--- OUTSIDE RECORDS SUMMARY | 2023-02-28 00:33 | External Medical Summary | Summary of Care ---
Author Name Unknown Organization [facility] Address [address] [facility] [place] [address] Phone [phone] Care Team Providers Care Tire Trimmer Hand Name Role Phone Unavailable Primary Care Provider Unavailabl e Reason for Visit * Reason Onset Date Comments Test Results 09/18/2022 Encounter Details Date Type Department Care Team Description 09/18/2022 Telephone Gynecology/Obstetrics [facility] [address] [place] [address] Latanya Jolly PA-C [address] [place] [address] Test Results Allergies No known active allergiesdocumented as of this encounter (statuses as of 09/18/2022) Medications Medication Sig Dispensed Refills Start Date [...] as of this encounter (statuses as of 09/18/2022) Active Problems Problem Noted Date Cervical high [...] as of this encounter (statuses as of 09/18/2022) Social History Tobacco Use Types Packs/Day Years [...] encounter Miscellaneous Notes * Telephone Encounter - Alexia Carlos RN - 09/18/2022 1:51 PM EDT Pt returned call. Aware of results. Pt would like to contact her insurance company to be sure the testing will be covered and will call office back with her decision. * Telephone Encounter - Celia Robbins RN - 09/18/2022 11:20 AM EDT left message for patient to call office * Telephone Encounter - Latanya Jolly PA-C - 09/18/2022 10:52 AM EDT Please let her know that her genetic testing Qnatal was not able to be performed due to low fraction. Please let her we can repeat it if she'd like. I can also place referral to Maternal Medicine given no result for further recommendation for screening in given she is advancedmaternal age. Please let me know what she'd like to do. documented in this encounter Plan of Treatment Upcoming Encounters Date Type Specialty Care Team Description 09/27/2022 Office Visit Gynecology Obstetrics Araceli Arriola CRNP [address] [place] [address] 01/23/2023 Office Visit Family Medicine Moe Lopez DO [address] [place] [address] Health Maintenance Due Date Last Done Comments [...]
--- OUTSIDE RECORDS SUMMARY | 2023-02-28 00:33 | External Medical Summary | Summary of Care ---
Author Name Unknown Organization [facility] Address [address] [facility] [place] [address] Phone [phone] Care Team Providers Care Packaging Line Attendant Name Role Phone Unavailable Primary Care Provider Unavailabl e Reason for Visit * Reason Comments Return Visit Encounter Details Date Type Department Care Team Description 11/01/2022 Office Visit Gynecology/Obstetrics [facility] [address] [place] [address] Latanya Jolly PA-C [address] [place] [address] Normal in second trimester*; Multigravida of advanced [...] concerns. No bleeding/leaking/contractions. Has upcoming trip to [place] for work. Plans to fly. Reviewed DVT precautions. Blood type A+, records printed for her today. RTC in 4 weeks Latanya Jolly PA-C documented in this encounter Nursing Notes * Vanessa Gross LPN - 11/01/2022 9:30 AM EDT 22w0d Anatomy scan today- having a girl. Will be traveling to [place] next month, will try to get back in for [employer] prior to leaving. documented in this encounter Plan of Treatment Upcoming Encounters Date Type Specialty Care Team Description 01/23/2023 Office Visit Family Medicine Moe Lopez, [address] [place] [address] Health Maintenance Due Date Last Done Comments [...]
== END 2023-02-27 14:00 | disposition home or self-care (01) | DRG 807 ==
LOC: OPB 02:53 → 4S1 02:59 → 4E2 07:04
DX: Z3A.38 38 weeks gestation of pregnancy; O80 Encounter for full-term uncomplicated delivery; Z37.0 Single live birth